=== PATIENT | female | born 2000 | race Caucasian/White ===

== ENCOUNTER 2023-05-23 11:44 | Outpatient (REF) | payer MEDICAID, SELFPAY ==
[2023-05-23 14:10] LABS: Alanine Aminotransferase 12 U/L (0-31); Albumin Level 4.3 g/dL (3.5-5.0); Alkaline Phosphatase 67 U/L (39-117); Amylase 48 U/L (28-100); Anion Gap 11 (12-20); Aspartate Amino Transferase 12 U/L (5-31); Bilirubin Total 0.7 mg/dL (0.0-1.0); Blood Urea Nitrogen 8 mg/dL (9-16); Calcium 9.4 mg/dL (8.4-10.2); Carbon Dioxide 26 mmol/L (22-29); Chloride 107 mmol/L (96-108); Estimated Glomerular Filt Rate > 60; Glucose Random 79 mg/dL (60-115); Lipase 12 U/L (8-78); Potassium 3.9 mmol/L (3.3-5.1); Sodium 140 mmol/L (135-145); Total Protein 7.2 g/dL (6.5-8.0)
[2023-05-26 04:00] LABS: HBS Num1 0.46 mIU/mL (0-7.99); HBc Num1 0.12 S/CO (0.00-0.79); HBsAGNum1 0.41 S/CO (0.00-0.99); HIV AB/AG Nonreactive (Nonreactive); HIV Num 1 0.06 S/CO (0.00-0.99); Hepatitis B Core Antibody Nonreactive (Nonreactive); Hepatitis B Surface Antigen Negative (Negative); ~HepC Num1 0.09 S/CO (0.00-0.79); ~Hepatitis B Surface Antibody NONREACTIVE (Nonreactive); ~Hepatitis C Antibody Nonreactive (Nonreactive)
[2023-05-26 09:48] LABS: RPR Rapid Plasma Reagin NON-REACTIVE (NON-REACTIVE)
== END 2023-05-23 11:45 | disposition home or self-care (01) ==
LOC: HO.HHCL 11:44
PROVIDERS: Visit Provider Emergency Medicine
DX: R10.11 Right upper quadrant pain (principal)
CPT/HCPCS: 36415; 80053; 82150; 83690; 86592; 86704; 86706; 86803; 87340; 87389

== ENCOUNTER 2023-08-07 08:36 | Outpatient (AMB) | payer MEDICAID, SELFPAY ==
--- NOTE | 2023-08-07 08:38 | A.OFFVIS_ITS ---
Intake Vital Signs 08/07/23 08:47 Height 5 ft 4 in Weight 190 lb BMI 32.6 BP 119/66 Blood Pressure Location Rt brachial Position Sitting Pulse 69 Intake Visit Reasons: Gallstones - [facility] U/S Intake Note: This patient presents for an assessment for gallstones. Patient c/o; reports epigastric pain, reports shortness of breath when gets gb attacks, reports postprandial nausea, reports diarrhea. [employer] Required: No Accompanied by: Self / Same As Patient Allergies amoxicillin Allergy (Verified 08/07/23 08:45) Anaphylaxis, Hives Penicillins Allergy (Verified 08/07/23 08:45) Anaphylaxis, Hives Medication List - Last Reconciled 08/07/23 by aRkesh Freeman MD albuterol sulfate 90 mcg/actuation (Ventolin HFA) 2 puffs inhalation Q6H PRN fluticasone propionate 44 mcg/actuation (Flovent HFA) 2 puffs inhalation BID HPI Gallstones - [facility]/S HPI Details 23[facility] had an episode of severe heartburn and epigastric pain last October,. She went to the ER [facility] and she had an ultrasound done showing a small layering gallstone. She was at the time so she says that she was told to wait until after her before proceeding with surgery She delivered her twins last March,. A CT scan done in [facility] in April 2023 did not show these gallstones. However, she continues to have set of epigastric and right upper quadrant pain. She therefore wants to proceed with cholecystectomy. She is overall healthy and the only medical issue she has is that she had an ablation for an arrhythmia when she was 9 years old. [facility] Medical History (Updated 08/07/23 @ 08:44 by Rakesh Freeman MD) Gallstone Social History (Updated 08/07/23 @ 08:46 by HUNTER Russell) Alcohol intake: never Patient Tobacco Use Status: Never used Tobacco Review of Systems Const Denies chills and Denies fever(s) Card Denies chest pain, Denies dyspnea and Denies dyspnea on exertion Resp Denies cough, Denies dyspnea and Denies dyspnea on exertion GI Denies hematochezia and Denies change in bowel habits Denies hematuria Musc Denies back pain and Denies limited range of motion Neuro Denies focal weakness and Denies convulsions Psych Denies depression and Denies mood swings Physical Exam Vital Signs: Last Vital Signs Pulse 69 08/07/23 08:47 BP 119/66 08/07/23 08:47 BMI result Body Mass Index 32.6 Const General: comfortable and no acute distress Orientation/consciousness: patient oriented x3 Neck Neck: Yes no lymphadenopathy Resp Auscultation: clear to auscultation bilaterally Cardio Rhythm: regular rhythm GI Palpation (GI): Soft to palpation, nontender and no guarding Neuro General: patient oriented x3 Assessment & Plan Assessment & Plan (1) Gallstone: Code(s): K80.20 - Calculus of gallbladder without cholecystitis without obstruction Plan: I plan on retrieving her CAT scan images from [facility] so we can review this. Since her ultrasound was done almost a year ago, I will repeat this as well. In the meantime, we will also schedule her for laparoscopic cholecystectomy in view of her symptoms. I explained the technique of laparoscopic cholecystectomy as well as open cholecystectomy. I reviewed the risks including but not limited to bleeding, infections, bowel injury, injury to other organs including the liver and the bile duct, bile leak, retained stones, as well as benefits and alternatives. She understands and wants to proceed. Orders: Orders US abdomen limited 08/07/23 K80.20 - Calculus of gallbladder without cholecystitis without obstruction Coding Level of Care Code New Pt Level 3 (75278) Diagnoses Gallstone K80.20
[2023-08-07 08:47] VITALS: BP 119/66; PULSE 69; BMI 32.6
== END 2023-08-07 09:17 | disposition home or self-care (01) ==
PROVIDERS: PCP Nurse Practitioner; Referring Provider Nurse Practitioner; Visit Provider Surgery
DX: K80.20 Calculus of gallbladder without cholecystitis without obstruction (principal)
CPT/HCPCS: 99203

== ENCOUNTER → 2023-08-07 08:36 | Outpatient (BNVA) | payer MEDICAID, SELFPAY | PROVIDERS: PCP Nurse Practitioner; Referring Provider Nurse Practitioner; Visit Provider Surgery | DX: K80.20 Calculus of gallbladder without cholecystitis without obstruction (principal) | CPT/HCPCS: 99202 ==

== ENCOUNTER 2023-08-25 13:13 | Outpatient (REF) | payer MEDICAID, SELFPAY ==
--- NOTE | ~2023-08-25 | US_ITS ---
EXAMINATION: US ABDOMEN LIMITED CLINICAL INFORMATION: Gallstone. COMPARISON: Ultrasound abdomen 09/17/2017, CT abdomen pelvis 04/07/2023 TECHNIQUE: Real-time imaging of the right upper quadrant abdominal viscera. FINDINGS: PANCREAS: Normal. LIVER: The liver appears enlarged similar to prior CT scan and demonstrates mildly increased echogenicity suggesting steatosis. The liver contour is normal. No focal hepatic lesion. There is no intrahepatic biliary duct dilatation seen. GALLBLADDER: The gallbladder is physiologically distended. A few mobile gallstones are present. No evidence of gallbladder wall thickening or pericholecystic fluid. COMMON BILE DUCT: Normal in caliber measuring 0.4 cm in diameter. RIGHT KIDNEY: Normal. No hydronephrosis. No renal calculi or focal parenchymal lesions. The kidney measures 10.7 cm in maximum dimension. FREE FLUID: None. US/US abdomen limited IMPRESSION: 1. Cholelithiasis without evidence of cholecystitis. 2. Enlarged fatty liver.
== END 2023-08-25 13:14 | disposition home or self-care (01) ==
LOC: HO.HMGCX 13:13
PROVIDERS: Visit Provider Surgery
DX: K80.20 Calculus of gallbladder without cholecystitis without obstruction (principal)
CPT/HCPCS: 76705

== ENCOUNTER 2023-09-03 05:58 | Day surgery (SDC) | payer MEDICAID, SELFPAY ==
--- NOTE | 2023-09-02 10:18 | HO.ANESPROP2 ---
Documented by User: Guadalupe Arriaga NP 09/02/23 10:18 HPI - Anesthesia Eval Consult details Narrative: 23yo F for Cholecystectomy Laparoscopic,possible open PMFSH Active Problems Active Problems: All Active Problems (Updated 08/07/23 @ 08:44 by Rakesh Freeman MD) Gallstone (Acute) Past Medical History Medical History Gallstone Social History Social History Alcohol intake: never Patient Tobacco Use Status: Never used Tobacco Second Hand Smoke Exposure: No Use of substances other than those prescribed or required for medical reasons: No Are you DNR?: No Advance Directives: No Advance Directives Information Provided: Yes Advance Directives on File: No Meds Allergies Allergy/AdvReac Type Severity Reaction Status Date / Time amoxicillin Allergy Anaphylaxis, Verified 08/07/23 08:45 Hives Penicillins Allergy Anaphylaxis, Verified 08/07/23 08:45 Hives Home Medications Medication Instructions Recorded Confirmed Last Taken Type albuterol sulfate 90 mcg/actuation 2 puff inhalation Q6H PRN wheezing 08/07/23 08/07/23 Unknown History aerosol inhaler (Ventolin HFA) fluticasone propionate 44 2 puff inhalation BID 08/07/23 08/07/23 Unknown History mcg/actuation HFA aerosol inhaler (Flovent HFA) Exam Pertinent Lab Results Pertinent Lab Results: Laboratory Tests 05/23/23 11:50 Sodium 140 Potassium 3.9 Chloride 107 Carbon Dioxide 26 BUN 8 L Creatinine 0.73 Total Bilirubin 0.7 AST 12 ALT 12 Alkaline Phosphatase 67 Total Protein 7.2 Albumin 4.3 Assessment and Plan Assessment Anesthesia Assessment: Chart Reviewed Documented by User: Vivien Luna MD 09/03/23 07:29 PMFSH Past Medical History Medical History Gallstone Surgical History History of Problems with Anesthesia: No Social History Social History Alcohol intake: never Patient Tobacco Use Status: Never used Tobacco Second Hand Smoke Exposure: No Use of substances other than those prescribed or required for medical reasons: No Are you DNR?: No Advance Directives: No Advance Directives Information Provided: Yes Advance Directives on File: No Meds Allergies Allergy/AdvReac Type Severity Reaction Status Date / Time amoxicillin Allergy Anaphylaxis, Verified 08/07/23 08:45 Hives Penicillins Allergy Anaphylaxis, Verified 08/07/23 08:45 Hives Home Medications Medication Instructions Recorded Confirmed Last Taken Type albuterol sulfate 90 mcg/actuation 2 puff inhalation Q6H PRN wheezing 08/07/23 08/07/23 Unknown History aerosol inhaler (Ventolin HFA) fluticasone propionate 44 2 puff inhalation BID 08/07/23 08/07/23 Unknown History mcg/actuation HFA aerosol inhaler (Flovent HFA) Exam Airway Mallampati Class: II TM Dist: >3cm Neck ROM: Full Loose/Missing/Broken Teeth: No Heart: RRR Lungs: CTA Assessment and Plan Assessment Anesthesia Assessment: Anesthesia Plan Discussed Final Anesthetic Review History of Problems with Anesthesia: No NPO: Yes ASA Class: II Final Preanesthetic Review: Meds/Allgs Chart Reviewed, Consent Obtained/Reviewed and Anes Risks/Benef Reviewed Patient Risk: Low Procedure Risk: Intermediate Anesthetic Plan Anesthetic Plan: GA Disposition: Standard PACU
[2023-09-03] VITALS (8 sets, daily range): BP systolic 108–122; BP diastolic 72–82; PULSE 61–85; RESP 16–17; TEMP 36.4–36.9; O2SAT 94–100; BMI 34.7
[2023-09-03 06:45] LABS: Urine Pregnancy NEGATIVE (NEGATIVE)
[2023-09-03 06:46] LABS: UPreg QC Valid YES
[2023-09-03] MEDS: Lactated Ringers 1,000 ML 100 ML IVCONT (06:59)
--- NOTE | 2023-09-03 07:32 | MHC.SHP ---
Pre-Procedural Eval Section A - 24 Hr Update-Section A only Date of Service: 09/03/23 The patient is an INPATIENT: No Changes since office visit: No Cold of Flu in the past 2 weeks, No New Medical Problems, No Changes in Medication and No Patient answered all questions The patient has been examined within 24 hours of the surgical procedure. The History & Physical has been completed within 30 days and I have reviewed it.: Yes Section B - Complete if H&P > 30 days Chief Complaint: Calculus of gallbladder without cholecystitis with Allergies: Allergies Allergy/AdvReac Type Severity Reaction Status Date / Time amoxicillin Allergy Anaphylaxis, Verified 08/07/23 08:45 Hives Penicillins Allergy Anaphylaxis, Verified 08/07/23 08:45 Hives Plan I have reviewed the history and physical and performed a pertinent physical examination on my patient. No changes have occurred unless specified. Time Spent With Patient Time: Total time managing care of this patient today ____ minutes.
--- NOTE | 2023-09-03 08:53 | P.OP_ITS ---
Operative Note Operative Note Date of Service: 09/03/23 Narrative: Preop diagnosis: symptomatic gallstones Postop diagnosis: the same Procedure: Laparoscopic cholecystectomy Surgeon: Rakesh Freeman MD The patient is a 23 year female referred to me for symptomatic gallstones. This was seen on a recent ultrasound as well. She understood the technique of the planned procedure. She was aware of the risks, benefits, and alternatives. She was brought to the operating room. She was placed supine under general anesthesia via endotracheal tube. The abdomen was prepped and draped in the usual sterile fashion. A surgical time-out was done. The patient received Cefotan 2 g IV preoperatively I made a short incision on the supraumbilical margin using a blade 15. This carried down through the full-thickness of the skin subcutaneous fat down to the fascia. The fascia was incised. The peritoneum was entered. Through this incision and Araya port was introduced. Pneumoperitoneum was introduced to a pressure of 15 mm Hg and from here on the rest of procedure was done under vision with the 10 mm 0 degree laparoscope. With laparoscopic visualization I proceeded to insert a 5/12 mm port in the epigastric area below the subcostal margin. Two 5 mm ports were introduced via small incisions below the subcostal margin along the anterior axillary line and the midclavicular line. Graspers were placed through these working ports. The patient was placed in head-up and [id number] position. The gallbladder fundus was seen. There was note of a lot of adhesions on the anterior wall. There was note of a small bowel loop that was adherent to the anterior wall as well. We were able to apply a grasper on the fundus and this was retracted cephalad. I then proceeded to carefully dissect the adhesions off of the anterior wall of the gallbladder using the [place] dissector. Were able to therefore completely separate this small bowel loop off of the gallbladder. I was able to apply a grasper at the pouch of the gallbladder to retract this laterally. The gallbladder was therefore being retracted in a cephalad and lateral fashion to put the area of the cystic duct on stretch. The gallbladder was supple and did not appear acutely inflamed. We continued to do this dissection of the neck of the gallbladderuntil I was able to define the cystic duct well and clearly see its confluence with the neck of the gallbladder. By doing so, we were able to also achieve a critical view of the hepatocystic triangle. We could see what appeared to be the cystic artery and there were no other tubular structures . I continued to dissect the cystic duct and then applied clips on this with two clips applied distally. The cystic duct was transected between clips with Endo scissors. I applied clips on the cystic artery as well with 2 clips applied d istally and this was transected between clips with Endo scissors. I used the [place] dissector to continue to gently dissect the rest of the fibro areolar tissue in the hilum . I incised the peritoneum of the gallbladder using the electrocautery spatula. I then defined a plane of dissection between the gallbladder wall and the liver bed along this incision. I the gallbladder from the liver bed along this plane all the way to the fundus until the entire gallbladder was completely from the liver bed . I retrieved the gallbladder through the umbilical incision using an endobag . I reinserted all ports and reinsufflated. I examined all 4 quadrants. There was no other pathology seen. I lifted the liver edge and examined the subhepatic space. There was no evidence of any bleeding or any bile leak . Once hemostasis appeared confirmed, proceeded to then irrigate and suction out irrigant fluid I then desufflated Through the port sites. I removed all ports under vision with the laparoscope. I removed the umbilical port last. I closed the fascia of the umbilical incision with a [id number] Polysorb 0 stitch. Skin closure was achieved on all incisions using Polysorb 4-0 subcuticular running sutures All incisions were infiltrated with Marcaine 0.5% for postop analgesia. Steri-Strips and dressings were applied. The procedure was completed. The patient tolerated procedure well. There were no immediate complications. Initial and final counts of sponges and instruments were correct. Estimated blood loss was about 25 cc. The patient was extubated without difficulty and transferred to the recovery room with stable vital signs
[2023-09-03] MEDS: oxyCODONE HCl Immed Release 5 MG TABLET PO (09:23)
[2023-09-03] MEDS: ondansetron HCL 4 MG/2 ML VIAL IVPUSH (10:00)
== END 2023-09-03 11:00 | disposition home or self-care (01) ==
PROVIDERS: Nurse Practitioner; Visit Provider Surgery
PROC: 0FT44ZZ Resection of Gallbladder, Percutaneous Endoscopic Approach (ICD-10-PCS; CPT 47562; principal; 2023-09-03 07:30)
DX: K80.10 Calculus of gallbladder with chronic cholecystitis without obstruction (principal); K82.8 Other specified diseases of gallbladder; Z79.51 Long term (current) use of inhaled steroids; Z88.0 Allergy status to penicillin; Z88.1 Allergy status to other antibiotic agents
CPT/HCPCS: 47562; 81025; 88304; J0131; J1100; J1170; J1580; J1836; J2250; J2405; J2704; J2795; J3010

== ENCOUNTER → 2023-09-03 05:58 | Outpatient (BNV) | payer MEDICAID, SELFPAY | PROVIDERS: Visit Provider Surgery | DX: K80.20 Calculus of gallbladder without cholecystitis without obstruction (principal) | CPT/HCPCS: 47562 ==

== ENCOUNTER 2025-06-14 08:43 | Emergency (ER) | payer OTHER, SELFPAY ==
--- NOTE | ~2025-06-14 | CT_ITS ---
EXAMINATION: CT ABDOMEN AND PELVIS WITH CONTRAST CLINICAL INFORMATION: Left upper quadrant pain/epigastric pain. COMPARISON: Correlated to ultrasound limited dated August 25, 2023. TECHNIQUE: Multidetector volumetric images were obtained from the superior aspect of the liver through the pubic symphysis following administration 85 mL of Omnipaque 350 intravenous contrast. Sagittal and coronal reformatted images were obtained on the technologist's workstation. Oral contrast: No This CT examination was performed using dose optimization techniques as appropriate, variously including the following: *Automated exposure control *Adjustment of mA and/or kV according to patient size (this includes techniques or standardized protocols for targeted exams where dose is matched to indication/reason for exam; i.e. extremities or head) *Use of iterative reconstruction technique DLP: 513 mGy-cm FINDINGS: Inadequate IV contrast enhancement of the intra-abdominal organs. Exam acquired on a delayed phase. LUNG BASES: Subtle pulmonary patchy groundglass. LIVER, GALLBLADDER, AND BILIARY TREE: Liver measures 17 cm. Status post cholecystectomy. No intrahepatic or extrahepatic biliary ductal dilatation. PANCREAS: No main pancreatic ductal dilatation. No peripancreatic fluid collection. SPLEEN: 11 cm. ADRENAL GLANDS: No nodular lesion. KIDNEYS AND URETERS: No hydronephrosis. No gross nephrolithiasis. Subcentimeter cyst, left kidney. Normal urinary excretion into the collecting system. BLADDER: Contrast-filled Collapsed. GASTROINTESTINAL TRACT: Fluid-filled distal ileal loops with a collapsed appearance of the jejunal loops. Intestinal wall thickening, terminal ileum and distal ileal loops. Fluid-filled right hemicolon. No intestinal obstruction pattern. No pneumatosis intestinalis. Collapsed appearance of the sigmoid colon. No ascites. No pneumoperitoneum. No peritoneal fluid collections. Appendix is normal. ABDOMINAL WALL: Diastases abdominal rectus muscles in the umbilical region. LYMPH NODES: Prominent mesenteric and to a lesser extent retroperitoneal lymph nodes. VASCULAR: No aneurysm or gross dissection, abdominal aorta. PELVIC VISCERA: Inadequate evaluation demonstrated no gross masses. OSSEOUS STRUCTURES: Spondylosis at L5-S1. No acute fracture or gross listhesis. Mild degenerative changes in the symphysis pubis. CT/CT abdomen pelvis w IV con IMPRESSION: Concerning acute inflammatory bowel disease such as Crohn's disease versus ulcerative colitis. No intestinal obstruction pattern. Hepatomegaly. Subtle pulmonary patchy groundglass. Small airway disease versus small pulmonary artery disease should be considered.. Fleischner guidelines were followed. Electronically signed by: Ramón Mix MD 06/14/2025 11:28 AM EST
[2025-06-14 08:50] VITALS: BP 109/61; PULSE 91; RESP 20; TEMP 36.6; O2SAT 100; BMI 32.0
--- NOTE | 2025-06-14 09:00 | ED.ABDPAIN ---
HPI - Abdominal Pain General Chief Complaint: Abdominal Pain Stated Complaint: Stomach Pain Time Seen by Provider: 06/14/25 08:59 Source: patient and RN notes reviewed Mode of arrival: ambulatory Limitations: no limitations History of Present Illness ED Provider: Sola Flores PA-C HPI narrative: This is a 25-year-old female who presents emergency department with complaints of mid upper abdominal pain which started yesterday. Patient reports that the pain started yesterday, she endorses chills, nausea, vomiting, and diarrhea. She states that she has had multiple episodes of watery diarrhea which started this morning. Patient does report that she had some lower abdominal pain several days ago however reports that this has resolved. She states that she now is having significant pain in her epigastrium and left upper quadrant. Denies any sick contacts with similar symptoms. She reports that the pain is primarily in the epigastrium and left upper quadrant. Denies chance of . No abnormal vaginal discharge or bleeding. She does report that she uses marijuana, denies any other drug use. She does not regularly drink alcohol. No other complaints or concerns at this time. MD elicited complaint: abdominal pain Related Data Home Medications ?Medication ?Instructions ?Recorded ?Confirmed albuterol sulfate 90 mcg/actuation 2 puff inhalation Q6H PRN wheezing 08/07/23 08/07/23 aerosol inhaler (Ventolin HFA) fluticasone propionate 44 2 puff inhalation BID 08/07/23 08/07/23 mcg/actuation HFA aerosol inhaler (Flovent HFA) Previous Rx's ?Medication ?Instructions ?Recorded ibuprofen 600 mg tablet 600 mg PO Q6H PRN pain #30 tabs 09/03/23 oxycodone-acetaminophen 5 mg-325 1 tab PO Q4-6H PRN pain #25 tabs 09/03/23 mg tablet (Percocet) acetaminophen 500 mg tablet 500 mg PO Q6H PRN pain #30 tabs 06/14/25 (Tylenol Extra Strength) ondansetron 4 mg disintegrating 4 mg PO Q6H PRN nausea and 06/14/25 tablet vomiting #10 tabs Allergies Allergy/AdvReac Type Severity Reaction Status Date / Time amoxicillin Allergy Anaphylaxis, Verified 06/14/25 08:52 Hives Penicillins Allergy Anaphylaxis, Verified 06/14/25 08:52 Hives Review of Systems Review of Systems Yes all other systems are reviewed and are negative Constitutional: Reports as per [facility] Past Medical History Medical History (Updated 06/14/25 @ 17:11 by YAMIL Bradshaw) Gallstone Surgical History (Updated 09/16/23 @ 10:17 by HUNTER Russell) History of laparoscopic cholecystectomy (~09/03/23) Social History Social History Alcohol intake: never Patient Tobacco Use Status: Never used Tobacco Second Hand Smoke Exposure: No Advance Directives: No Advance Directives Information Provided: No Do you have a plan to hurt others: No Plan Physical Exam ED Vital Signs: Vital Signs - 24 hr 06/14/25 08:50 06/14/25 12:27 06/14/25 13:26 Temperature 97.9 F Pulse Rate 91 89 Respiratory Rate 20 16 25 H Blood Pressure 109/61 139/85 Pulse Oximetry 100 99 Oxygen Delivery Method Room Air Room Air BMI result Body Mass Index 32.0 Const General: cooperative, comfortable and no acute distress Orientation/consciousness: patient oriented x3 Limitations: no limitations HENMT Head: Yes normal to inspection, Yes normocephalic and Yes atraumatic Ears: hearing grossly normal bilaterally General nose exam: Normal external nose present Face and sinus: Yes normal facial exam Mouth: Normal oral and palatal mucosa present, oropharynx normal and moist mucous membranes Throat: Yes posterior oropharynx normal Eyes General: appearance normal, both eyes and all related structures Eyelids: Yes eyelids normal Conjunctivae: conjunctivae normal Sclerae: sclerae normal Pupils: Equal, round and reactive pupils present EOM: EOMs intact bilaterally Neck Neck: Yes normal visual inspection, Yes full ROM and Yes no lymphadenopathy Lymphatic: no lymphadenopathy noted Chest Chest palpation & inspection: normal inspection of the chest Resp Effort & Inspection: normal respiratory effort and able to speak in complete sentences Auscultation: clear to auscultation bilaterally, no crackles, no rales, no rhonchi and no wheezes Cardio Rate: regular rate Rhythm: regular rhythm Heart sounds: S1 normal heart sound present and S2 normal heart sound present GI Other: Abdomen is soft with tenderness palpation in the epigastrium and left upper quadrant. No rebound or guarding. Inspection: Yes normal to inspection Skin General skin exam: no rashes or lesions noted Trauma: no lacerations or abrasions Wounds: no wounds Neuro General: patient oriented x3 and moves all extremities Cranial nerves: Yes Equal, round and reactive pupils present Extrem General: Yes normal to inspection Right upper extremity: normal to inspection Left upper extremity: normal to inspection Right lower extremity: normal to inspection Left lower extremity: normal to inspection Medical Decision Making Medical Decision Making [facility] Narrative: This is a 25-year-old female who presents emergency department for evaluation of abdominal pain, nausea, vomiting, diarrhea which started yesterday. On arrival, patient nontoxic appearing, speaking in full sentences. Vital signs within normal limits. Abdomen is soft with tenderness palpation in the epigastrium and left upper quadrant. She has a history of a cholecystectomy several years ago. No urinary symptoms. Differential diagnoses include gastritis, gastroenteritis, colitis. Less likely acute abdomen. Plan: Labs, UA, CT abdomen and pelvis, will medicate with IV fluids, Pepcid, Toradol, and Zofran. We will continue to closely monitor. 2:01 PM 06/14/2025 (Sola Flores PA-C): CT abdomen and pelvis revealing inflammatory bowel disease. Also revealing hepatommegaly, as well as airway disease. She has no chest pain or shortness of breath at this time. No pleuritic chest pain, discussed with my attending physician, Dr. Carvajal, no additional workup indicated for this. Patient re-evaluated, still experiencing significant pain. Will treat with IV Tylenol, and 2nd dose of Zofran. Reached out to Dr. Reinoso GI specialist. Recommending avoiding Toradol, obtaining stool samples. If patient is unable to tolerate p.o. secondary to pain, patient may need to be admitted. We will follow-up outpatient. 4:53 PM 06/14/2025 (Sola Flores PA-C): Patient re-evaluated after being medicated, she is feeling better, will p.o. challenge. 6:00 PM 06/14/2025 (Sola Flores PA-C): Patient able to tolerate p.o.. Discharged on Zofran and Tylenol. She will follow-up with GI specialist outpatient. Stool samples were collected. Patient understands agrees with plan. Given strict return precautions, patient stable for discharge. Differential Diagnosis Differential Diagnoses: The differential diagnosis associated with the presentation includes See above Lab Data [facility] Lab Attestation statement: I reviewed the patient's lab results. No leukocytosis, stable H&H, chemistry revealing no significant electrolyte derangement. Urine does not appear to be infected. 06/14/25 09:00 06/14/25 09:00 Labs: Lab Results 06/14/25 06/14/25 Range/Units 09:00 10:57 WBC 8.2 (4.8-10.8) X10*3/uL RBC 5.07 (4.20-5.50) X10*6/uL Hgb 13.1 (12.0-16.0) g/dl Hct 40.8 (37.0-47.0) % MCV 80.5 (80.0-98.0) fL MCH 25.8 L (27.0-33.0) pg MCHC 32.1 (31.0-35.0) g/dl RDW 14.5 (11.0-16.0) % Plt Count 356 (160-400) X10*3/uL MPV 10.7 (9.4-12.3) fL Immature Gran % (Auto) 0.4 (0.0-0.4) % Neut % (Auto) 83.1 H (45-73) % Lymph % (Auto) 10.9 L (20-40) % [place] % (Auto) 5.2 (2-11) % Eos % (Auto) 0.2 (0-4) % Baso % (Auto) 0.2 (0-2) % Lymph # (Auto) 0.9 L (1.2-4.9) X10*3/uL [place] # (Auto) 0.4 (0.1-1.2) X10*3/uL Eos # (Auto) 0.0 (0.0-0.4) X10*3/uL Baso # (Auto) 0.0 (0.0-0.2) X10*3/uL Abs Immat Gran (auto) 0.03 (0.00-0.03) X10*3/uL Absolute Neuts (auto) 6.8 (2.0-8.3) x10*3/uL Absolute Nucleated RBC 0.000 (0.0-0.012) X10*3/uL Nucleated RBC % (auto) 0.0 (0.0-0.2) /100WBC Sodium 139 (135-145) mmol/L Potassium 3.8 (3.3-5.1) mmol/L Chloride 109 H (96-108) mmol/L Carbon Dioxide 23 (22-29) mmol/L Anion Gap 11 L (12-20) BUN 9 (9-16) mg/dL Creatinine 0.68 (0.5-1.4) mg/dL Estim Creat Clear Calc 131.8 Estimated GFR > 60 Random Glucose 87 (60-115) mg/dL Calcium 8.8 D (8.4-10.2) mg/dL Total Bilirubin 0.7 (0.0-1.0) mg/dL Direct Bilirubin 0.2 (0.0-0.5) mg/dL AST 22 (5-31) U/L ALT 15 (0-31) U/L Alkaline Phosphatase 73 (39-117) U/L Total Protein 7.3 (6.5-8.0) g/dL Albumin 4.5 (3.5-5.0) g/dL Lipase 16 (8-78) U/L Beta HCG, Quant < 2 mIU/mL Urine Color Yellow Urine Appearance Clear Urine pH 6.0 (5.0-9.0) Ur Specific [place] >= 1.030 H (1.005-1.025) Urine Protein 30 (1+) H (Neg-Trace) mg/dL Urine Glucose (UA) Negative (Negative) mg/dL Urine Ketones 40 (Negative) mg/dL Urine Blood Negative (Negative) Urine Nitrite Negative (Negative) Ur Leukocyte Esterase Trace H (Negative) Urine RBC 0-2 (0-2) /HPF Urine WBC 0-5 (0-5) /HPF Ur Squamous Epith Cells 11-20 (0-2) /HPF Urine Bacteria 1+ (None Seen) Hyaline Casts 0-2 (0-2) /LPF Urine Test NEGATIVE (NEGATIVE) Radiology Impression Discussion of test interpretation with radiology: I have reviewed the radiologist's reading. Radiologist Impression: FINDINGS: Inadequate IV contrast enhancement of the intra-abdominal organs. Exam acquired on a delayed phase. LUNG BASES: Subtle pulmonary patchy groundglass. LIVER, GALLBLADDER, AND BILIARY TREE: Liver measures 17 cm. Status post cholecystectomy. No intrahepatic or extrahepatic biliary ductal dilatation. PANCREAS: No main pancreatic ductal dilatation. No peripancreatic fluid collection. SPLEEN: 11 cm. ADRENAL GLANDS: No nodular lesion. KIDNEYS AND URETERS: No hydronephrosis. No gross nephrolithiasis. Subcentimeter cyst, left kidney. Normal urinary excretion into the collecting system. BLADDER: Contrast-filled Collapsed. GASTROINTESTINAL TRACT: Fluid-filled distal ileal loops with a collapsed appearance of the jejunal loops. Intestinal wall thickening, terminal ileum and distal ileal loops. Fluid-filled right hemicolon. No intestinal obstruction pattern. No pneumatosis intestinalis. Collapsed appearance of the sigmoid colon. No ascites. No pneumoperitoneum. No peritoneal fluid collections. Appendix is normal. ABDOMINAL WALL: Diastases abdominal rectus muscles in the umbilical region. LYMPH NODES: Prominent mesenteric and to a lesser extent retroperitoneal lymph nodes. VASCULAR: No aneurysm or gross dissection, abdominal aorta. PELVIC VISCERA: Inadequate evaluation demonstrated no gross masses. OSSEOUS STRUCTURES: Spondylosis at L5-S1. No acute fracture or gross listhesis. Mild degenerative changes in the symphysis pubis. CT/CT abdomen pelvis w IV con IMPRESSION: Concerning acute inflammatory bowel disease such as Crohn's disease versus ulcerative colitis. No intestinal obstruction pattern. Hepatomegaly. Subtle pulmonary patchy groundglass. Small airway disease versus small pulmonary artery disease should be considered.. Fleischner guidelines were followed. Electronically signed by: Ramón Mix MD 06/14/2025 11:28 AM [facility] Dictated By: Ramón Haynes MD Medications Administered Discontinued Medications Generic Name Dose Route Start Last Admin Trade Name Freq PRN Reason Stop Dose Admin Famotidine 20 mg 06/14/25 09:45 06/14/25 10:51 Famotidine/Pf 20 Mg/2 Ml Vial IVPUSH 06/14/25 09:46 20 mg ONCE ONE Administration Sodium Chloride 1,000 mls @ 999 mls/hr 06/14/25 09:40 06/14/25 12:26 Ns IV 06/14/25 10:40 Infused .Q1H1M ONE Infusion Acetaminophen 1,000 mg in 100 mls @ 400 mls/hr 06/14/25 14:07 06/14/25 14:43 Ofirmev IV 06/14/25 14:21 400 mls/hr ONCE ONE Administration Sodium Chloride 1,000 mls @ 999 mls/hr 06/14/25 14:15 06/14/25 14:44 Ns IV 06/14/25 15:15 999 mls/hr .Q1H1M ONE Administration Iohexol 100 ml 06/14/25 11:11 06/14/25 11:11 Iohexol 350 Mg/Ml 100 Ml Infus..Btl IV 06/14/25 11:12 85 ml ONCE ONE Administration Ketorolac Tromethamine 15 mg 06/14/25 09:40 06/14/25 10:51 Ketorolac Tromethamine 15 Mg/Ml Vial IVPUSH 06/14/25 09:41 15 mg ONCE ONE Administration Morphine Sulfate 4 mg 06/14/25 12:52 06/14/25 13:26 Morphine Sulfate 4 Mg/Ml Cartridge IVPUSH 06/14/25 12:53 4 mg ONCE ONE Administration Protocol Ondansetron HCl 4 mg 06/14/25 09:40 06/14/25 10:52 Ondansetron Hcl 4 Mg/2 Ml Vial IVPUSH 06/14/25 09:41 4 mg ONCE ONE Administration Ondansetron HCl 4 mg 06/14/25 14:07 06/14/25 14:43 Ondansetron Hcl 4 Mg/2 Ml Vial IVPUSH 06/14/25 14:08 4 mg ONCE ONE Administration Discharge Plan Discharge Clinical Impression: Gastroenteritis Patient Disposition: Home, Self-Care Instructions: Gastroenteritis (ED), Acute Nausea and Vomiting (ED), Enteritis (ED) Additional Instructions: You were seen in the emergency department due to abdominal pain. Your CT scan was concerning for acute inflammatory bowel disease such as Crohn's disease versus ulcerative colitis. This was discussed with the GI specialist, this may be attributed to a virus, however you can follow-up with their office, call to make an appointment. Stick to a bland diet over the next several days. Drink plenty of fluids get plenty of rest. May take Zofran as needed for nausea. You may take Tylenol as needed for pain. Avoid any NSAIDs. If any new or worsening symptoms occur including but not limited to severe chest pain, shortness of breath, please seek emergent care. Prescriptions: New ondansetron 4 mg tablet,disintegrating 4 mg PO Q6H PRN (Reason: nausea and vomiting) Qty: 10 0RF acetaminophen [Tylenol Extra Strength] 500 mg tablet 500 mg PO Q6H PRN (Reason: pain) Qty: 30 0RF No Action oxycodone-acetaminophen [Percocet] 5-325 mg tablet 1 tab PO Q4-6H PRN (Reason: pain) Qty: 25 0RF Rx Instructions: Partial Fill upon patient request. ibuprofen 600 mg tablet 600 mg PO Q6H PRN (Reason: pain) Qty: 30 0RF albuterol sulfate [Ventolin HFA] 90 mcg/actuation HFA aerosol inhaler 2 puff inhalation Q6H PRN (Reason: wheezing) fluticasone propionate [Flovent HFA] 44 mcg/actuation HFA aerosol inhaler 2 puff inhalation BID Referrals: [facility] [Provider Group, Gastroenterology] Stand Alone Forms: Work/School Release Print Language: [place]se
[2025-06-14 09:03] LABS: MANUAL DIFF FLAG NO
[2025-06-14 09:05] LABS: Hematocrit 40.8 % (37.0-47.0); Hemoglobin 13.1 g/dl (12.0-16.0); Imm Gran Abs Auto 0.03 X10*3/uL (0.00-0.03); Imm Gran Pct Auto 0.4 % (0.0-0.4); Lymphocytes Absolute Auto 0.9 X10*3/uL (1.2-4.9); Mean Corpuscular HGB Conc 32.1 g/dl (31.0-35.0); Mean Corpuscular Hemoglobin 25.8 pg (27.0-33.0); Mean Corpuscular Volume 80.5 fL (80.0-98.0); NRBC Abs Auto 0.000 X10*3/uL (0.0-0.012); NRBC Pct Auto 0.0 /100WBC (0.0-0.2); Platelet Count 356 X10*3/uL (160-400); Red Blood Count 5.07 X10*6/uL (4.20-5.50); White Blood Count 8.2 X10*3/uL (4.8-10.8)
[2025-06-14 09:19] LABS: Alanine Aminotransferase 15 U/L (0-31); Albumin Level 4.5 g/dL (3.5-5.0); Alkaline Phosphatase 73 U/L (39-117); Anion Gap 11 (12-20); Aspartate Amino Transferase 22 U/L (5-31); Blood Urea Nitrogen 9 mg/dL (9-16); Calcium 8.8 mg/dL (8.4-10.2); Carbon Dioxide 23 mmol/L (22-29); Chloride 109 mmol/L (96-108); Creatinine Clr Calc Pharmacy 131.8; Estimated Glomerular Filt Rate > 60; Lipase 16 U/L (8-78); Potassium 3.8 mmol/L (3.3-5.1); Sodium 139 mmol/L (135-145); Total Protein 7.3 g/dL (6.5-8.0)
--- OUTSIDE RECORDS SUMMARY | 2025-06-14 09:56 | XMS_ITS | Encounter Summary ---
Author Organization [facility] Address [address] [place] [address] Care Team Providers Care Adult Services Librarian Name Role Phone Justa Smita MAYELA Primary Care Provider [phone] Reason for Visit * Reason Comments Med Refill Encounter Details Date Type Department Care Team (Late st Contact Info) Description 08/31/2023 Refill [facility] [address] [place] [address] Valery Howe FNP Social History Tobacco Use Types Packs/Day Years Used Date Smoking Tobacco: Never Smokeless Tobacco: Never Alcohol Use Standard Drinks/Week Comments Not Currently 0 (1 standard drink = 0.6 oz pur e alcohol) Depression Answer Date Recorded Patient Health Questionnaire-9 Score 3 11/11/2022 Housing Stability Answer Date Recorded What is your housing situation today? I do not have housing (Staying with others, in a hotel, in a jail, living outside on the street, on a beach, in a car, or in a park 05/12/[address] you li ve. Do you have problems with any of the following? None of the above 05/12/2023 Food Insecurity Answer Date Recorded Within the past 12 months, y ou worried that your food would run out before you got money to buy more: Never True 05/19/2023 Within the past 12 months,th e food you bought just didn't last and you didn't have enough money to get more: Never True Transportation Answer Date Recorded In the past 12 months, has l ack of transportation kept you from medical appts, meetings, work or from getting things needed for daily living? Yes, it has kept me from medical appointments or getting medications. 05/12/2023 Utilities Answer Date Recorded In the past 12 months, has t he [employer], gas, oil or water [employer] threatened to shut off services in your home? No 05/19/2023 Depression Answer Date Recorded Patient Health Questionnaire-2 Score 1 11/11/2022 Comments Yes Sex and Gender Information Value Date Recorded Sex Assigned at Female 06/03/2022 10:15 AM EDT Legal Sex Female 10:15 AM EDT Gender Identity Female 06/03/2022 10:15 AM EDT Sexual Orientation Straight 06/03/2022 10 :15 AM EDT documented as of this encounter Miscellaneous Notes * Telephone Encounter - Smita Marr NP - 09/01/2023 9:46 PM EST Approving, but needs appt for additional refills. documented in this encounter Plan of Treatment Not on file documented as of this encounter Visit Diagnoses Not on filedocumented in this encounter Additional Health Concerns Assessment Noted Time PHQ-9 Depression Total Score: 3 11/12/19 23 2:18 PM EDT documented as of this encounter Care Teams Adult Services Librarian Relationship Specialty Start Date End Date Smita Marr NP [address] [place] [address] PCP - General Family Medicine 05/13/23 documented as of this encounter
--- OUTSIDE RECORDS SUMMARY | 2025-06-14 09:56 | XMS_ITS | Clinical Summary ---
Author Organization [employer] Address [address] [place] [address] 7[address] [place] [address] Care Team Providers Care Alum Plant Operator Name Role Phone Jerrysukhjinder Smita PEDRO Primary Care Provider [phone] Allergies Active Allergy Reactions Criticality Noted Date Comments Amoxicillin 11/11/2022 Penicillin G 11/11/2022 Medications ibuprofen 800 MG tablet PLEASE SEE ATTACHED FOR DETAILED DIRECTIONS 3 Active acetaminophen (Tylenol) 325 MG tablet PLEASE SEE ATTACHED FOR DETAILED DIRECTIONS 3 Active albuterol 108 (90 Base) MCG/ACT inhalerIndication s:Mild persistent asthma without complication Inhale 2 puffs every 6 (six) hours if needed for wheezing or shortness of breath. 18 g 3 3 Active fluticasone (Flovent) 44 MCG/ACT inhaler Inhale 2 puffs 2 times daily. 10.6 g 3 3 Active Stool Softener 100 MG tablet TAKE 1 TABLET BY MOUTH TWICE A DAY 180 tablet 3 Active famotidine (Pepcid) 20 MG tablet TAKE 1 TABLET BY MOUTH TWICE A DAY 180 tablet 4 Active norethindrone (Micronor) 0.35 MG tablet PLEASE SEE ATTACHED FOR DETAILED DIRECTIONS 3 Active Active Problems Problem Noted Date Diagnosed Date Cardiomyopathy, peripartum, 4 Right upper quadrant abdominal pain 05/30/2023 Epigastric pain 05/30/2023 Twin , twins dichorionic and diamniotic 03/27/2023 Depression during 03/27/2023 Positive antinuclear antibody 11/11/2022 Recurrent urinary tract infection 11/11/2022 Seasonal allergies 11/11/2022 Class 2 obesity 11/11/2022 Edema 11/11/2022 H/O proteinuria syndrome 11/11/2022 H/O supraventricular tachycardia 11/11/2022 Maternal varicella, non-immune 11/11/2022 Not immune to rubella 11/11/2022 Calculus of kidney 10/27/2019 Microscopic hematuria 10/27/2019 Obstruction of urinary tract 10/27/2019 Mild persistent asthma 09/10/2018 Proteinuria 11/28/2016 Obstructive sleep apnea syndrome 07/05/2016 Encounters Date Type Department Care Team Description 06/14/2025 Orders Only GENERIC EXTERNAL DATA DEPARTMENT Provider, Generic External Data from Last 3 Months Immunizations Immunization Administration Dates Next Due DTaP 01/03/2005, 1,1999,10/08,1999 HPV 9-Valent 06/24/2017,11/28/2016,05/02/2016 Hep A, ped/adol, 2 dose 11/28/2016,05/02/2016 Hep B, Adolescent or Pediatric 05/27/2000,1999,1999 Hib (HbOC) 10/21/2000, 0,1999,08/21 INFLUENZA INJECTABLE QUADRIV ALANT CCIIV4 MDCK Multi-dose vial 04/29/2019 IPV 01/03/2005, 1,1999,08/21 Influenza injectable quadriv alent preservative free 09/15/2023,06/15/2021,08/09/2019,09/17,06/24/2017,05/02/2016,06/07/2015 Influenza, IIV3, injectable 09/02/2022, 0 Influenza, seasonal, injecta ble, preservative free 07/07/2014 MMR 03/09/2023,01/03/2005,05/27/2000 Meningococcal MCV4P [id number]-135 05/02/2016 Pfizer Covid-19 Vaccine 12+ 07/07/2014 Pfizer Covid-19 Vaccine 12+ imelda-sucrose (Arnett Cap) 08/02/2021 Pneumococcal Conjugate PCV 7 10/21/2000,05/28/20 00,02/26/2000 Pneumococcal, Unspecified 10/21/2000,2000, 02/26/2000 Tdap 12/23/2022,06/26/2010 Varicella 05/21/2010,05/27/2000 Family History Medical History Relation Name Comments No Known Problems Brother Diabetes Father Hypertension Father Arthritis Mother Asthma Mother Diabetes Mother Hypertension Mother No Known Problems Sister Relation Name Status Comments Brother Father Mother Sister Social History Tobacco Use Types Packs/Day Years Used Date Smoking Tobacco: Never Smokeless Tobacco: Never Tobacco Cessation:Counseling Given: Not Answered Alcohol Use Standard Drinks/Week Comments Not Currently 0 (1 standard drink = 0.6 oz pur e alcohol) Depression Answer Date Recorded Patient Health Questionnaire-9 Score 3 11/11/2022 Housing Stability Answer Date Recorded What is your housing situation today? I do not have housing (Staying with others, in a hotel, in a penitentiary, living outside on the street, on a beach, in a car, or in a park 06/10/[address] you li ve. Do you have problems with any of the following? None of the above 06/10/2024 Food Insecurity Answer Date Recorded Within the past 12 months, y ou worried that your food would run out before you got money to buy more: Sometimes True 2023 Within the past 12 months,th e food you bought just didn't last and you didn't have enough money to get more: Sometimes True 06/10/2024 Transportation Answer Date Recorded In the past 12 months, has l ack of transportation kept you from medical appts, meetings, work or from getting things needed for daily living? Yes, it has kept me from medical appointments or getting medications. 06/10/2024 Utilities Answer Date Recorded In the past 12 months, has t he [employer], gas, oil or water [employer] threatened to shut off services in your home? No 05/19/2023 Depression Answer Date Recorded Patient Health Questionnaire-2 Score 1 11/11/2022 Internet Access Answer Date Recorded Internet Access Q1 Yes 06/10/2024 Internet Access Q2 Not on file 06/10/2024 Comments No Sex and Gender Information Value Date Recorded Sex Assigned at Female 06/03/2022 10:15 AM EDT Legal Sex Female 10:15 AM EDT Gender Identity Female 06/03/2022 10:15 AM EDT Sexual Orientation Straight 06/03/2022 10 :15 AM EDT Last Filed Vital Signs Vital Sign Reading Time Taken Comments Blood Pressure 112/63 10/07/2023 10:26 AM EST Pulse 88 10/07/2023 10:26 AM EST Temperature 36.4 C (97.5 F) 10/07/2023 10:26 AM EST Respiratory Rate 19 10/07/2023 10:26 AM EST Oxygen Saturation 99% 10/07/2023 10:26 AM EST Inhaled Oxygen Concentration - - Weight 89 kg (196 lb 3.2 oz) 10/07/2023 10:26 AM EST Height 162.6 cm (5' 4 ) 10/07/2023 10:26 AM EST Body Mass Index 33.68 10/07/2023 10:26 AM EST Plan of Treatment Health Maintenance Due Date Last Done Comments Disability Screening 1999 Alcohol/Substance Use Screening 2011 Family Planning (PISQ) 2014 Pneumococcal Vaccine: Pediatrics (0 to 5 Years) and At-Risk Patients (6 to 49) Years (1 of 2 - PCV) 2018 10/21/2000, 10/21/2000, 2000, Additional history exists Depression Screening 11/12/2023 11/11/2022, 11/12/19 23 COVID-19 Vaccine ( season) 2025 01/16/2022, 08/02/2021, 06/25/2021, Additional history exists Influenza Vaccine (#1) 2025 , 09/02/2022, 09/02/2022, Additional history exists SDOH Screening 06/10/2025 06/10/2024 Tobacco Screening 07/23/2025 07/23/2024 HPV/Cotest 08/26/2025 Pap Smear 08/26/2025 08/26/2022 DTaP/Tdap/Td Vaccines (9 - Td or Tdap) 04/15/2034 04/15/2024, 12/23/2022, 06/26/2010, Additional history exists Zoster Vaccines (1 of 2) 2049 RSV Patients and Patients Aged 60 years or older (1 - 1-dose 75+ series) 2074 Hepatitis B Vaccines Completed 05/27/2000, 02/26/2000, 1999 HIB Vaccines Completed 10/21/2000, 03/2000, 1999, Additional history exists IPV Vaccines Completed 01/03/2005, 10/03, 1999, Additional history exists Meningococcal Vaccine Completed 05/02/2016 Hepatitis A Vaccines Completed 11/28/2016, 05/02/20 16 HPV Vaccines Completed 06/24/2017, 11/03, 05/02/2016 HIV Screening Completed 05/23/2023, 03/31/2020 Hepatitis C Screening Completed 05/23/2023, 020 Meningococcal B Vaccine Aged Out No l onger eligible based on patient's age to complete this topic RSV under 20 months Aged Out No longe r eligible based on patient's age to complete this topic Rotavirus Vaccines Aged Out No longer eligible based on patient's age to complete this topic Procedures Procedure Name Priority Date/Time Associated Diagnosis Comments CBC WITH AUTO DIFFERENTIAL Routine 06/14/2025 9:00 AM EST HEPATITIS B, C PROFILE Routine 05/23/2023 11:50 AM EDT HIV ANTIBODY/ANTIGEN ([place] DPH) Routine 05/23/2023 11:50 AM EDT HM PAP/HPV Routine 08/26/2022 from Last 3 Months or Most Recently Relevant to Health Maintenance Results * (ABNORMAL) CBC auto differential (06/14/2025 9:00 AM EST) White Blood Count 8.2 4.8 - 10.8 X10*3/uL [facility] Red Blood Count 5.07 4.20 - 5.50 X10*6/uL [facility] Hemoglobin 13.1 12.0 - 16.0 g/dl [facility] Hematocrit 40.8 37.0 - 47.0 % [facility] Mean Corpuscular Volume 80.5 80.0 - 98.0 fL [facility] Mean Corpuscular Hemoglobin 25.8(L) 27.0 - 33.0 pg [facility] Mean Corpuscular HGB Conc 32.1 31.0 - 35.0 g/dl [facility] Red Cell Distribution Width 14.5 11.0 - 16.0 % [facility] Platelet Count 356 160 - 400 X10*3/uL [facility] Mean Platelet Volume 10.7 9.4 - 12.3 fL [facility] Neutrophils Percent Auto 83.1(H) 45 - 73 % [facility] Imm Gran Pct Auto 0.4 0.0 - 0.4 % [facility] Lymphocytes Percent Auto 10.9(L) 20 - 40 % [facility] Monocytes Percent Auto 5.2 2 - 11 % [facility] Eosinophils Percent Auto 0.2 0 - 4 % [facility] Basophils Percent Auto 0.2 0 - 2 % [facility] NRBC Pct Auto 0.0 0.0 - 0.2 /100WBC [facility] Neutrophils Absolute Auto 6.8 2.0 - 8.3 x10*3/uL [facility] Imm Gran Abs Auto 0.03 0.00 - 0.03 X10*3/uL [facility] Lymphocytes Absolute Auto 0.9(L) 1.2 - 4.9 X10*3/uL [facility] Monocytes Absolute Auto 0.4 0.1 - 1.2 X10*3/uL [facility] Eosinophils Absolute Auto 0.0 0.0 - 0.4 X10*3/uL [facility] Basophils Absolute Auto 0.0 0.0 - 0.2 X10*3/uL [facility] NRBC Abs Auto 0.000 0.0 - 0.012 X10*3/uL [facility] 06/14/2025 9:00 AM EST 06/14/2025 9:02 AM EST us Generic External Data Provider LAB BLOOD ORDERAB LES Final Result [facility] [address] [place] [address] [phone] * Hepatitis B, C Profile (05/23/2023 11:50 AM EDT) ~Hepatitis B Surface Antibody NONREACTIVE Nonreactive [facility] Comment:Nonreactive: < 8.00 mIU/mL Hepatitis B Core Antibody Nonreactive Nonreactive [facility] Hepatitis C Antibody Nonreactive Nonreactive [facility] Comment:Antibodies to HCV no t detected; does not exclude early acuteHCV infection. Hepatitis B Surface Ag Negative Negative [facility] 05/23/2023 11:5 0 AM EDT 05/23/2023 1:38 PM EDT Valery Howe [facility] LAB BLOOD ORDERABLES Final Res ult Performing Organization Address [facility] de Phone Number [facility] [address] [place] [phone] * HIV Ab/Ag ([facility]) (05/23/2023 11:50 AM EDT) Pathologist [facility] HIV AB/AG Nonreactive Nonreactive [facility] Comment:HIV-1 p24 Ag and/or HIV-1/HIV-2 Ab not detected.A test result that is nonreactive does not exclude thepossibility of exposure to or infection with HIV-1 and/orHIV-2. Nonreactive results in this assay for individualswith prior exposure to HIV-1 and/or HIV-2 may be due toantigen and antibody levels that are below the limit ofdetection of this assay.The [facility] HIV Ag/Ab Combo assay result andsupplemental assay results should be interpreted inconjunction with the patient's clinical presentation,history and other laboratory results. If the results areinconsistent with clinical evidence, additional testing issuggested to confirm the result. 05/23/2023 11:5 0 AM EDT 05/23/2023 1:38 PM EDT Valery Howe [facility] LAB BLOOD ORDERABLES Final Res ult Performing Organization Address [facility] Co de Phone Number [facility] [address] [place] [address] [phone] * Pap Smear (08/26/2022) Pap Negative for intraephithelial lesion or malignancy Negative for intraephithelial lesion or malignancy, Other us Historical Provider HEALTH MAINTENANCE Final Result from Last 3 Months or Most Recently Relevant to Health Maintenance Insurance [employer] Care Teams Alum Plant Operator Relationship Specialty Start Date End Date Smita Marr NP [address] [place] [phone] PCP - General Family Medicine 05/13/23
--- OUTSIDE RECORDS SUMMARY | 2025-06-14 09:56 | XMS_ITS | Clinical Summary ---
Author Organization [facility] [employer] [facility] Address [address] [place] [address] Care Team Providers Care Head Still Operator Name Role Phone Unavailable Primary Care Provider Unavailabl e Social History Tobacco Use Types Packs/Day Years Used Date Smoking Tobacco: Never Assessed Comments Unknown Sex and Gender Information Value Date Recorded Sex Assigned at Not on file Legal Sex Female 9:03 AM EDT Gender Identity Not on file Sexual Orientation Not on file Plan of Treatment Not on file Medical Devices Not on file
--- OUTSIDE RECORDS SUMMARY | 2025-06-14 09:56 | XMS_ITS | Encounter Summary ---
Author Organization [employer] Address [address] [facility] [address]t [place] [address] Care Team Providers Care College Hire Name Role Phone Jsuta Smita MAYELA Primary Care Provider [phone] Reason for Visit * Reason Comments Med Change Request Encounter Details Date Type Department Care Team (Late st Contact Info) Description 05/23/2023 Refill [facility] MEDICINE [address] [place] [address] Valery Howe FNP Social History Tobacco Use [...] with others, in a hotel, in a chcf, living outside on the street, on a [...] the past 12 months, has t he [employer], gas, oil or water [employer] threatened to shut off services in your [...] encounter Miscellaneous Notes * Telephone Encounter - MARISSA Serrano - 05/23/2023 2:26 PM EDT Approving, but needs appt for additional refills. documented in this encounter Plan of Treatment Not on file documented as of this encounter Visit Diagnoses Not on filedocumented in this encounter Additional Health Concerns Assessment Noted Time PHQ-9 Depression Total Score: 3 11/12/19 2:18 PM EDT documented as of this encounter Care Teams College Hire Relationship Specialty Start Date End Date Smita Marr NP [address] [place] [phone] PCP - General Family Medicine 05/13/23 documented as of this encounter
--- OUTSIDE RECORDS SUMMARY | 2025-06-14 09:56 | XMS_ITS | Encounter Summary ---
Author Organization [employer] Address [address] [facility] 7t [place] [address] Care Team Providers Care Reconciling Clerk Name Role Phone Smita Marr MAYELA Primary Care Provider [phone] Encounter Details Date Type Department Care Team (Late st Contact Info) Description 06/14/2025 Orders Only GENERIC EXTERNAL DATA DEPARTMENT Provider, Generic External Data Social History Tobacco Use Types Packs/Day Years [...] with others, in a hotel, in a care home, living outside on the street, on a [...] the past 12 months, has t he electric, gas, oil or water company threatened to shut off services in your [...] AM EDT documented as of this encounter Plan of Treatment Not on file documented as of this encounter Procedures Procedure Name Priority Date/Time Associated Diagnosis Comments CBC WITH AUTO DIFFERENTIAL Routine 06/14/2025 9:00 AM EST documented in this encounter Results * (ABNORMAL) CBC auto differential (06/14/2025 9:00 AM EST) White Blood Count 8.2 4.8 - 10.8 X10*3/uL [facility] Red Blood Count 5.07 4.20 - 5.50 X10*6/uL [facility] Hemoglobin 13.1 12.0 - 16.0 g/dl [facility] Hematocrit 40.8 37.0 - 47.0 % [facility] Mean Corpuscular Volume 80.5 80.0 - 98.0 fL [facility] Mean Corpuscular Hemoglobin 25.8(L) 27.0 - 33.0 pg [facility] Mean Corpuscular HGB Conc 32.1 31.0 - 35.0 g/dl [facility] Red Cell Distribution Width 14.5 11.0 - 16.0 % [facility] Platelet Count 356 160 - 400 X10*3/uL [facility] Mean Platelet Volume 10.7 9.4 - 12.3 fL [facility] Neutrophils Percent Auto 83.1(H) 45 - 73 % [facility] Imm Gran Pct Auto 0.4 0.0 - 0.4 % [facility] Lymphocytes Percent Auto 10.9(L) 20 - 40 % [facility] Monocytes Percent Auto 5.2 2 - 11 % [facility] Eosinophils Percent Auto 0.2 0 - 4 % [facility] Basophils Percent Auto 0.2 0 - 2 % [facility] NRBC Pct Auto 0.0 0.0 - 0.2 /100WBC [facility] Neutrophils Absolute Auto 6.8 2.0 - 8.3 x10*3/uL [facility] Imm Gran Abs Auto 0.03 0.00 - 0.03 X10*3/uL [facility] Lymphocytes Absolute Auto 0.9(L) 1.2 - 4.9 X10*3/uL [facility] Monocytes Absolute Auto 0.4 0.1 - 1.2 X10*3/uL [facility] Eosinophils Absolute Auto 0.0 0.0 - 0.4 X10*3/uL [facility] Basophils Absolute Auto 0.0 0.0 - 0.2 X10*3/uL [facility] NRBC Abs Auto 0.000 0.0 - 0.012 X10*3/uL [facility] 06/14/2025 9:00 AM EST 06/14/2025 9:02 AM EST us Generic External Data Provider LAB BLOOD ORDERAB LES Final Result Performing Organization Address City/State/[facility] Co de Phone Number [facility] [address] [place] [phone] documented in this encounter Visit Diagnoses Not on filedocumented in this encounter Additional Health Concerns Assessment Noted Time PHQ-9 Depression Total Score: 3 11/12/19 23 2:18 PM EDT documented as of this encounter Care Teams Reconciling Clerk Relationship Specialty Start Date End Date Smita Marr NP [address] [place] [address] PCP - General Family Medicine 05/13/23 documented as of this encounter
--- OUTSIDE RECORDS SUMMARY | 2025-06-14 09:56 | XMS_ITS | Encounter Summary ---
Author Organization [employer] Address [address] [facility] 7t [place] [address] Care Team Providers Care Executive Director Of Marketing Name Role Phone Smita Marr NP Primary Care Provider Reason for Visit * Reason Onset Date Comments Referral 11/04/2023 Encounter Details Date Type Department Care Team ([facility] st Contact Info) Description 11/04/2023 Telephone [facility] MEDICINE [address] [place], [place] [phone] Smita Marr NP [address] [place] [address] Referral Social History Tobacco Use Types Packs/Day Years Used Date Smoking Tobacco: Never Smokeless Tobacco: Never Alcohol Use Standard Drinks/Week Comments Not Currently 0 (1 standard drink = 0.6 oz pur e alcohol) Depression Answer Date Recorded Patient Health Questionnaire-9 Score 3 11/11/2022 Housing Stability Answer Date Recorded What is your housing situation today? I have og kathleen 09/17/[address] you li ve. Do you have problems with any of the following? None of the above 09/17/2023 Food Insecurity Answer Date Recorded Within the [...] from getting things needed for daily living? No 09/17/2023 Utilities Answer Date Recorded In the past [...] encounter Miscellaneous Notes * Telephone Encounter - Aracely Lazaro RN - 11/13/2023 3:50 PM EDT TC placed to pt in regards to request for new cardiology referral. Pt states that she had a cardiacablation at age 10 and also has been recommended being followed by a senior scientist for her second . Pt has been in touch with provider at [facility] on [address] [place] [address]. Forwarding to provider for review. * Telephone Encounter - Renee Shaikh - 11/13/2023 12:01 PM EDT TC from pt returning call . Please contact pt at [phone]. * Telephone Encounter - Chet Charles RN - 11/04/2023 3:28 PM EDT T/C to pt. For below message. Call direct goes on voice message , states the person you are callingcannot accept the call right now, sorry for inconvenience. Not able to LVM. * Telephone Encounter - Jamison Wong - 11/04/2023 12:38 PM EDT TC from pt requesting new referral: Address: [address] [place] [address] Facility Name: [facility] Cardiology Type of Specialist: Cardiology Provider : Dr. Josh Chavez documented in this encounter Plan of Treatment Not on file documented as of this encounter Visit Diagnoses Not on filedocumented in this encounter Additional Health Concerns Assessment Noted Time PHQ-9 Depression Total Score: 3 11/12/19 2:18 PM EDT documented as of this encounter Care Teams Executive Director Of Marketing Relationship Specialty Start Date End Date Smita Marr NP [address] [place] [phone] PCP - General Family Medicine 05/13/23 documented as of this encounter
--- OUTSIDE RECORDS SUMMARY | 2025-06-14 09:56 | XMS_ITS | Clinical Summary ---
Author [facility] Address [address] [place] [address] Care Team Providers Care Sample Finisher Name Role Phone April Camarillo MD Primary Care Provider [phone] Social History Tobacco Use Types Packs/Day Years Used Date Smoking Tobacco: Never Assessed Comments Unknown Sex and Gender Information Value Date Recorded Sex Assigned at Not on file Legal Sex Female 2:00 AM EST Gender Identity Not on file Sexual Orientation Not on file Plan of Treatment Health Maintenance Due Date Last Done Comments HPV Vaccines (1 - 3-dose series) 2014 DTaP,Tdap,and Td Vaccines (1 - Tdap) 2018 Hepatitis B Vaccines (1 of 3 - 19+ 3-dose series) 2018 Cervical Cancer Screening: P ap Smear 2020 HIV Screening 07/07/2022 Hepatitis C Screening 07/07/2022 Social Influencers of Health Screening 07/07/2022 Depression Screening 08/04/2024 COVID-19 Vaccine ( - 2024-2 6 season) 2025 Influenza Vaccine (#1) 2025 RSV Immunization Adult Patie nts (1 - 1-dose 75+ series) 2074 HIB Vaccines Aged Out No longer eligi ble based on patient's age to complete this topic Hepatitis A Vaccines Aged Out No long er eligible based on patient's age to complete this topic IPV Vaccines Aged Out No longer eligi ble based on patient's age to complete this topic MMR Vaccines Aged Out No longer eligi ble based on patient's age to complete this topic Meningococcal ACWY Vaccine Aged Out N o longer eligible based on patient's age to complete this topic Meningococcal B Vaccine Aged Out No l onger eligible based on patient's age to complete this topic Pneumococcal Vaccine: Pediat rics (0 to 5 Years) and At-Risk Patients (6 to 49 Years) Aged Out No longer eligible b ased on patient's age to complete this topic RSV Immunization Patients Un suha 20 months Aged Out No longer eligible b ased on patient's age to complete this topic Varicella Vaccines Aged Out No longer eligible based on patient's age to complete this topic Care Teams Sample Finisher Relationship Specialty Start Date End Date April Camarillo MD [address] [place] [phone] PCP - General 08/04/11
[2025-06-14 11:07] LABS: Appearance Urine Clear; Glucose Urine UA Negative (Negative); PH 6.0 (5.0-9.0); Specific Gravity - Urine >= 1.030 (1.005-1.025); UMIC TRIGGER UACC YES
[2025-06-14 11:08] LABS: UPreg QC Valid YES
[2025-06-14] MEDS: iohexoL 350 MG/ML 100 ML INFUS..BTL IV (11:11)
[2025-06-14 12:27] VITALS: BP 139/85; PULSE 89; RESP 16; O2SAT 99
[2025-06-14 13:26] VITALS: RESP 25
--- NOTE | 2025-06-14 22:28 | PC.NURSE ---
not primary nurse, just departed pt off tracker
== END 2025-06-14 22:28 | disposition home or self-care (01) ==
PROVIDERS: Physician Assistant Medical; Emergency Provider Emergency Medicine
DX: K52.9 Noninfective gastroenteritis and colitis, unspecified (principal); R11.2 Nausea with vomiting, unspecified; R10.30 Lower abdominal pain, unspecified
CPT/HCPCS: 36415; 74177; 80048; 80076; 81001; 81025; 83690; 84702; 85025; 96361; 96365; 96375; 96376; 99284; 99285; J0131; J1308; J1885; J2270; J2405; Q9967

== ENCOUNTER → 2025-06-14 09:43 | Outpatient (BNV) | payer OTHER, SELFPAY | PROVIDERS: Emergency Provider Emergency Medicine; Visit Provider Radiology Diagnostic Radiology | DX: R16.0 Hepatomegaly, not elsewhere classified (principal); R91.8 Other nonspecific abnormal finding of lung field | CPT/HCPCS: 74177 ==

== ENCOUNTER 2025-07-11 07:24 | Emergency (ER) | payer OTHER, SELFPAY ==
--- NOTE | ~2025-07-11 | CT_ITS ---
EXAMINATION: CT ABDOMEN PELVIS WITH IV CONTRAST HISTORY: hx of IBD, rule out Crohn's flare COMPARISON: Comparison is made with the prior examination dated 06/14/2025. TECHNIQUE: CT scan of the abdomen and pelvis was performed following administration of 85 mL Omnipaque 350 using standard departmental protocol. Coronal and sagittal reformatted images were generated and reviewed. Oral contrast material was not administered at the request of the referring physician. This CT exam was performed with one or more of the following dose reduction techniques: automated exposure control, adjustment of the mA and/or kV according to patient size, use of iterative reconstruction technique. DLP: 566 mGy-cm FINDINGS: LOWER CHEST: The visualized lung bases are clear. There is no pleural effusion. CARDIOVASCULATURE: The heart is normal in size. There is no pericardial effusion. LIVER: The liver is normal in size and contour. No liver mass is identified. The hepatic and portal veins are patent. GALLBLADDER / BILE DUCTS: The gallbladder is unremarkable. There is no intra or extrahepatic biliary ductal dilatation. SPLEEN: The spleen is normal in size. No focal splenic lesion is identified. PANCREAS: The pancreas is unremarkable in appearance. ADRENAL GLANDS: Within normal limits. KIDNEYS/RETROPERITONEUM: No renal calculi are identified. There is no hydronephrosis. Again seen is a 1.1 cm left renal cyst. LYMPH NODES: No abdominal or pelvic lymphadenopathy. VASCULATURE: The abdominal aorta is normal in caliber. MESENTERY/PERITONEUM: No free fluid. No masses. There is no free intraperitoneal gas. STOMACH: There is a small hiatal hernia. The remainder of the stomach is collapsed. SMALL BOWEL: The small bowel is normal in caliber. There is no abnormal wall thickening or perienteric inflammatory stranding. COLON: The colon is unremarkable. APPENDIX: The appendix is not seen, however no inflammatory changes are seen adjacent to the cecum. URINARY BLADDER/PELVIC ORGANS: The urinary bladder is unremarkable. The uterus and ovaries are unremarkable. BONES / SOFT TISSUES: No suspicious bony or soft tissue abnormalities. CT/CT abdomen pelvis w IV con IMPRESSION: Small hiatal hernia. No abnormal small bowel wall thickening or small bowel obstruction. Electronically signed by: Inocente Frausto MD 07/11/2025 10:20 AM NIKKY LEW
[2025-07-11 07:34] VITALS: BP 114/63; PULSE 104; RESP 18; TEMP 36.2; O2SAT 100; BMI 31.9
--- NOTE | 2025-07-11 07:42 | ED_ITS ---
HPI - Abdominal Pain General Chief Complaint: Abdominal Pain Stated Complaint: Fever Body Aches Time Seen by Provider: 07/11/25 07:39 Source: patient and RN notes reviewed Mode of arrival: ambulatory Limitations: no limitations History of Present Illness ED Provider: Ginger Cartagena PA-C HPI narrative: 25-year-old female presenting to the ED for evaluation of acute abdominal pain that started last night and worsened this morning. The pain is associated with nausea, chills, low-grade fever, and body aches. She recalls a similar episode ?a couple of weeks ago? when a CT scan was performed; she was told to follow up with a specialist but does not recall the exact diagnosis (possibilities mentioned to her included colitis or diverticulitis). She is status-post cholecystectomy and has been eating healthier, avoiding greasy foods. Her last meal was oatmeal yesterday morning, after which chills began; she could not eat after that meal. She took Tylenol yesterday and again around 05:00 today without relief. She denies sick contacts, sore throat, cough, headache, dizziness, or (tubal ligation). Review of Systems: * General: Positive for chills, fever, body aches. * GI: Abdominal pain; nausea; one episode of vomiting on 06/23; denies hematemesis; last bowel movement this morning without pain or blood. * : Last urination this morning without dysuria or hematuria. * Respiratory/ENT: Denies sore throat, cough, congestion. * Neurologic: Denies headache or dizziness. Related Data Home Medications ?Medication ?Instructions ?Recorded ?Confirmed albuterol sulfate 90 mcg/actuation 2 puff inhalation Q 6H PRN wheezing 08/07/23 08/07/23 aerosol inhaler (Ventolin HFA) fluticasone propionate 44 2 puff inhalation BID 08/07/23 mcg/actuation HFA aerosol inhaler (Flovent HFA) Previous Rx's ?Medication ?Instructions ?Recorded ibuprofen 600 mg tablet 600 mg PO Q6H PRN pain #30 t abs 09/03/23 oxycodone-acetaminophen 5 mg-325 1 tab PO Q4-6H PRN pa in #25 tabs 09/03/23 mg tablet (Percocet) acetaminophen 500 mg tablet 500 mg PO Q6H PRN pain #30 tabs 06/14/25 (Tylenol Extra Strength) ondansetron 4 mg disintegrating 4 mg PO Q6H PRN nausea and 06/14/25 tablet vomiting #10 tabs ondansetron 4 mg disintegrating 4 mg PO Q8H PRN nausea and 07/11/25 tablet vomiting #10 tabs Allergies Allergy/AdvReac Type Severity Reaction Status Date / Time amoxicillin Allergy Anaphylaxis, Verified 07/11/25 07:34 Hives Penicillins Allergy Anaphylaxis, Verified 07/11/25 07:34 Hives Review of Systems Review of Systems Yes all other systems are reviewed and are negative [facility] Past Medical History Attestation statement: The following information was validated with the patient. Source: old records reviewed and nursing notes reviewed Medical History [facility] Surgical History History of laparoscopic cholecystectomy (~09/03/23) Social History Social History Alcohol intake: never Patient Tobacco Use Status: Never used Tobacco Smoked in Last 30 Days: No Second Hand Smoke Exposure: No Use of substances other than those prescribed or required for medical reasons: No Advance Directives: No Advance Directives Information Provided: Yes Do you have a plan to hurt others: No Plan Physical Exam ED Exam Exam: General: Appears in no acute distress, appears well nourished body habitus is obese, appears stated age. No septic or ill-appearing. Vitals reviewed normal, PMH/Social and Surgical hx reviewed including allergies and current medications. - reviewed for prior visits here and read as it pertains to similar CC. Head: Normocephalic, no obvious trauma or skin lesions noted. Eyes: EOMI, conjunctiva and sclera clear ENMT: moist oral mucosa, uvula midline no trismus, no tonsillar edema or exudate, tolerating secretions Neck: trachea midline, no lymphadenopathy Cardiovascular: peripheral perfusion normal, Regular heart rate and rhythm (fluctuates normal at rest) Respiratory: no respiratory distress Abdomen: nondistended, obese, tender epigastric region (gallbladder absent), no gaurding, negative peritoneal signs, no bladder or CVA ttp Extremities: warm and moving without difficulty unless otherwise detailed in physical exam if applicable. Psych: Cooperative, calm Neuro: Alert and oriented. Vital Signs: Vital Signs - 24 hr 07/11/25 07:34 07/11/25 08:21 07/11/25 10:40 Temperature 97.1 F 100.7 F H 99.2 F Pulse Rate 104 H 104 H 110 H Respiratory Rate 18 20 20 Blood Pressure 114/63 113/70 113/56 L Pulse Oximetry 100 100 100 Oxygen Delivery Method Room Air Room Air Room Air BMI result Body Mass Index 31.9 Medical Decision Making Medical Decision Making MDM Narrative: 0818: mag is 1.4, K is 3.2 will replenish with IVFs. Leukocytosis present 13.8 with shift. She does not appear toxic or septic. Likely from vomiting. Sepsis is not suspected. Strep is negative. CT abd/ pelvis with concern of IBD of crohns vs UC. 25-year-old female with acute epigastric abdominal pain, low-grade fever, leukocytosis, mild electrolyte abnormalities, and recent CT showing no acute pathology aside from small hiatal hernia. Clinical picture felt most consistent with a self-limited viral syndrome; other causes (including inflammatory bowel disease flare) are being considered. Pancreatitis has been excluded by normal lipase. Problem #1: Abdominal pain ? likely viral gastroenteritis vs. IBD flare (pancreatitis excluded) Plan: * Pancreatitis excluded by normal lipase. * Supportive care provided: IV fluid hydration and electrolyte repletion. * Viral gastroenteritis remains the most likely diagnosis; IBD flare is still possible given history and prior CT findings. * Patient is clinically stable and safe for discharge with strict return precautions for worsening pain, persistent fever, vomiting, or inability to tolerate oral intake. Problem #2: Leukocytosis with fever Plan: * Blood cultures obtained. * Monitor clinical status; lactate 1.0 mmol/L (low concern for sepsis). Problem #3: Electrolyte abnormalities ? hypomagnesemia & hypokalemia Plan: * IV magnesium and potassium replacement. * Re-check electrolytes after repletion. Disposition Patient received IV fluids and electrolyte repletion in ED and is clinically stable. She will be discharged home with instructions to maintain hydration and to return immediately for worsening symptoms or new concerns. Medical Decision Making (MDM) Summary of Presentation & Pertinent History: Bladimir is a 25-year-old female presenting with acute onset epigastric abdominal pain, nausea, chills, low-grade fever, and body aches. She reports a similar episode several weeks ago, with prior CT showing possible inflammatory bowel disease. She is status-post cholecystectomy and has been eating a healthier diet, avoiding greasy foods. No sick contacts, headache, dizziness, or risk. She took Tylenol without relief. Differential Diagnosis Considered: - Viral gastroenteritis (most likely given constellation of symptoms and negative infectious workup) - Inflammatory bowel disease (IBD) flare (history and prior CT findings) - Pancreatitis (considered due to epigastric pain and post-cholecystectomy status; now excluded by normal lipase) Other less likely causes (e.g., surgical abdomen, sepsis) considered but felt unlikely based on exam and labs. Rationale for Diagnostic Testing: - CBC: Evaluate for leukocytosis and infection - Electrolytes: Assess for dehydration and metabolic derangements - Lipase: Rule out pancreatitis - Blood cultures: Screen for bacteremia/sepsis due to fever and leukocytosis - Strep screen and viral panel: Rule out respiratory viral/bacterial causes - Review of prior CT: Assess for intra-abdominal pathology, IBD, or surgical causes Interpretation of [place] Findings: - Leukocytosis (WBC 13.8 K/?L) with left shift, but patient non-toxic and afebrile on arrival - Low magnesium (1.4 mg/dL) and potassium (3.2 mmol/L), likely secondary to poor oral intake and GI losses - Lactate 1.0 mmol/L, reassuring for low risk of sepsis - Strep, COVID-19, Influenza, RSV PCR all negative - CT abdomen/pelvis (06/14/2025): Small hiatal hernia, no acute intra-abdominal pathology, possible IBD noted previously - No evidence of surgical abdomen or acute infectious process on exam or imaging - Normal lipase excludes pancreatitis as a cause of her symptoms. Clinical Reasoning for Management Decisions: - IV fluid hydration initiated for symptomatic relief and correction of mild dehydration - IV magnesium and potassium repletion for documented hypomagnesemia and hypokalemia - Supportive care provided; pancreatitis excluded by normal lipase - Blood cultures and lactate obtained to rule out occult sepsis; low lactate and stable exam decrease concern for sepsis - Strict return precautions provided for worsening pain, persistent fever, vomiting, or inability to tolerate oral intake - Close monitoring in ED confirmed clinical stability and improvement with supportive care Disposition Rationale: Patient demonstrated clinical improvement with ED management (IV fluids, electrolyte repletion). She remained hemodynamically stable, non-toxic, and able to tolerate oral intake. No evidence of surgical abdomen or sepsis based on exam and laboratory findings. She is safe for discharge with instructions for hydration, close follow-up, and strict return precautions for any worsening symptoms or new concerns. Differential Diagnosis Differential Diagnoses: The differential diagnosis associated with the presentation includes Admission/Observation Consideration of admission/observation: Escalation of care including admission/observation considered Lab Data MDM Lab Attestation statement: I reviewed the patient's lab results. 07/11/25 07:50 07/11/25 07:50 Labs: Lab Results 07/11/25 07/11/25 07/11/25 Range/Units 07:50 07:54 08:20 WBC 13.8 H (4.8-10.8) X10*3/uL RBC 4.74 (4.20-5.50) X10*6/uL Hgb 12.4 (12.0-16.0) g/dl Hct 38.3 (37.0-47.0) % MCV 80.8 (80.0-98.0) fL MCH 26.2 L (27.0-33.0) pg MCHC 32.4 (31.0-35.0) g/dl RDW 13.8 (11.0-16.0) % Plt Count 333 (160-400) X10*3/uL MPV 10.8 (9.4-12.3) fL Immature Gran % (Auto) 0.6 H (0.0-0.4) % Neut % (Auto) 86.8 H (45-73) % Lymph % (Auto) 6.0 L (20-40) % [place] % (Auto) 6.5 (2-11) % Eos % (Auto) 0.0 (0-4) % Baso % (Auto) 0.1 (0-2) % Lymph # (Auto) 0.8 L (1.2-4.9) X10*3/uL [place] # (Auto) 0.9 (0.1-1.2) X10*3/uL Eos # (Auto) 0.0 (0.0-0.4) X10*3/uL Baso # (Auto) 0.0 (0.0-0.2) X10*3/uL Abs Immat Gran (auto) 0.08 H (0.00-0.03) X10*3/uL Absolute Neuts (auto) 12.0 H (2.0-8.3) x10*3/uL Absolute Nucleated RBC 0.000 (0.0-0.012) X10*3/uL Nucleated RBC % (auto) 0.0 (0.0-0.2) /100WBC Sodium 138 (135-145) mmol/L Potassium 3.2 L (3.3-5.1) mmol/L Chloride 105 (96-108) mmol/L Carbon Dioxide 24 (22-29) mmol/L Anion Gap 12 (12-20) BUN 9 (9-16) mg/dL Creatinine 0.83 (0.5-1.4) mg/dL Estim Creat Clear Calc 108.0 Estimated GFR > 60 Random Glucose 94 (60-115) mg/dL Lactic Acid (0.5-2.0) mmol/L Calcium 8.9 (8.4-10.2) mg/dL Magnesium 1.4 L* (1.6-2.6) mg/dL Total Bilirubin 1.7 H (0.0-1.0) mg/dL AST 17 (5-31) U/L ALT 11 (0-31) U/L Alkaline Phosphatase 84 (39-117) U/L Total Protein 7.4 (6.5-8.0) g/dL Albumin 4.7 (3.5-5.0) g/dL Lipase 12 (8-78) U/L Influenza Type A (PCR) NEGATIVE (Negative) Influenza Type B (PCR) NEGATIVE (Negative) RSV RNA Qual (PCR) NEGATIVE (Negative) SARS-CoV-2 RNA (RT-PCR) NEGATIVE (Negative) S. pyogenes GrpA RADHA Negative (Negative) 07/11/25 Range/Units 08:37 WBC (4.8-10.8) X10*3/uL RBC (4.20-5.50) X10*6/uL Hgb (12.0-16.0) g/dl Hct (37.0-47.0) % MCV (80.0-98.0) fL MCH (27.0-33.0) pg MCHC (31.0-35.0) g/dl RDW (11.0-16.0) % Plt Count (160-400) X10*3/uL MPV (9.4-12.3) fL Immature Gran % (Auto) (0.0-0.4) % Neut % (Auto) (45-73) % Lymph % (Auto) (20-40) % [place] % (Auto) (2-11) % Eos % (Auto) (0-4) % Baso % (Auto) (0-2) % Lymph # (Auto) (1.2-4.9) X10*3/uL [place] # (Auto) (0.1-1.2) X10*3/uL Eos # (Auto) (0.0-0.4) X10*3/uL Baso # (Auto) (0.0-0.2) X10*3/uL Abs Immat Gran (auto) (0.00-0.03) X10*3/uL Absolute Neuts (auto) (2.0-8.3) x10*3/uL Absolute Nucleated RBC (0.0-0.012) X10*3/uL Nucleated RBC % (auto) (0.0-0.2) /100WBC Sodium (135-145) mmol/L Potassium (3.3-5.1) mmol/L Chloride (96-108) mmol/L Carbon Dioxide (22-29) mmol/L Anion Gap (12-20) BUN (9-16) mg/dL Creatinine (0.5-1.4) mg/dL Estim Creat Clear Calc Estimated GFR Random Glucose (60-115) mg/dL Lactic Acid 1.0 (0.5-2.0) mmol/L Calcium (8.4-10.2) mg/dL Magnesium (1.6-2.6) mg/dL Total Bilirubin (0.0-1.0) mg/dL AST (5-31) U/L ALT (0-31) U/L Alkaline Phosphatase (39-117) U/L Total Protein (6.5-8.0) g/dL Albumin (3.5-5.0) g/dL Lipase (8-78) U/L Influenza Type A (PCR) (Negative) Influenza Type B (PCR) (Negative) RSV RNA Qual (PCR) (Negative) SARS-CoV-2 RNA (RT-PCR) (Negative) S. pyogenes GrpA RADHA (Negative) Independent Interpretation I performed an independent interpretation of an: CT Scan Interpretation: no acute findings Radiology Impression Discussion of test interpretation with radiology: I have reviewed the radiologist's reading. Chronic Conditions Patient?s care impacted by: Other Social Determinants Patient?s care significantly limited by Social Determinants of Health including: Other Social Determinant of Health Medications Administered Generic Name Dose Route Start Last Admin Trade Name Freq PRN Reason Stop Dose Admin Potassium Chloride 10 meq in 100 mls @ 100 mls/hr 07/11/25 09:00 07/11/25 09:22 Potassium Chloride/H20 IV 07/11/25 12:59 100 mls/hr Q1H CLIVE Administration Discontinued Medications Generic Name Dose Route Start Last Admin Trade Name Freq PRN Reason Stop Dose Admin Acetaminophen 975 mg 07/11/25 10:07 07/11/25 10:43 Acetaminophen 325 Mg Tablet PO 07/11/25 10:08 975 mg ONCE ONE Administration Sodium Chloride 1,000 mls @ 999 mls/hr 07/11/25 08:19 07/11/25 08:44 Ns IV 07/11/25 09:19 999 mls/hr .Q1H1M ONE Administration Magnesium Sulfate 2 gm in 50 mls @ 150 mls/hr 07/11/25 08:19 07/11/25 08:43 Magnesium Sulfate/H2o IV 07/11/25 08:38 150 mls/hr ONCE ONE Administration Iohexol 100 ml 07/11/25 10:06 07/11/25 10:07 Iohexol 350 Mg/Ml 100 Ml Infus..Btl IV 07/11/25 10:07 85 ml ONCE ONE Administration Ondansetron HCl 4 mg 07/11/25 07:50 07/11/25 08:15 Ondansetron Odt 4 Mg Tab.Rapdis TRANSLINGU 07/11/25 07:51 4 mg ONCE ONE Administration Critical Care Time Critical Care Time Critical Care Time: Yes Total Critical Care Time: 40 Attestation: This patient required critical care. Due to the fact that the patient required a significant amount of one on one physician ? patient contact time, ordering and review of studies, arranging urgent treatment with development of a management plan, evaluation of patient's response to treatment with frequent reassessments, and discussions with other providers this patient required critical care time in excess of 30 minutes. Critical care time was indicated due to the inherent instability and/or potential for instability in this patient. The critical care time that is allocated to this patient is above and beyond any time spent on any other billable procedures performed on this patient. Discharge Plan Discharge Clinical Impression: Gastroenteritis, Acute viral syndrome, Hypomagnesemia, Acute hypokalemia Patient Disposition: Home, Self-Care Additional Instructions: Discharge Summary Date of Visit: July 11, 2025 Location: Emergency Seasoner: Ginger Cartagena PA-C CHIEF COMPLAINT Abdominal pain with nausea, chills, and fever. HISTORY OF PRESENT ILLNESS 25-year-old female who presented to the emergency department with acute epigastric abdominal pain that began the night prior to presentation and worsened on the morning of July 11, 2025. Associated symptoms included nausea, chills, low-grade fever, and body aches. Her last meal was oatmeal on the morning of July 10, 2025, after which chills began; she was unable to eat thereafter. She took acetaminophen (Tylenol) on two occasions without symptom relief. The patient reported a similar episode approximately two weeks prior, during which a computed tomography (CT) scan of the abdomen and pelvis was performed. She was advised to follow up with a specialist and recalls being told the findings could represent colitis or diverticulitis. She denies sick contacts, sore throat (on initial history), cough, headache, dizziness, or risk of (status-post bilateral tubal ligation). She is status-post cholecystectomy and reports adherence to a healthier diet, avoiding greasy foods. She had one episode of vomiting on June 23, 2025. Last bowel movement and urination occurred on the morning of presentation without pain, blood, dysuria, or hematuria. PAST MEDICAL HISTORY - Status-post cholecystectomy - Status-post bilateral tubal ligation - Recent abdominal imaging (CT abdomen/pelvis on June 14, 2025) showing small hiatal hernia without acute intra-abdominal pathology; possible inflammatory bowel disease (Crohn's disease vs. ulcerative colitis) noted on prior imaging interpretation VITAL SIGNS - Blood Pressure: 114/62 mmHg - Heart Rate: 104 beats per minute (tachycardic) - Respiratory Rate: 18 breaths per minute - Temperature: 97.1?F on arrival; 100.2?F during ED course (low-grade fever) - Oxygen Saturation: 100% on room air PHYSICAL EXAMINATION - General: Appeared uncomfortable but non-toxic - HEENT: Oral mucosa moist and hydrated; no pharyngeal erythema - Lungs: Clear to auscultation bilaterally - Cardiac: Regular rhythm; tachycardic at 104 bpm - Abdomen: Soft; tender to palpation in the epigastric region; no guarding, rigidity, or rebound tenderness DIAGNOSTIC STUDIES Laboratory Results: * White Blood Cell Count: 13.8 K/?L (elevated) with left shift * Lactate: 1.0 mmol/L (normal, reassuring for low sepsis risk) * Magnesium: 1.4 mg/dL (low; normal range 1.7?2.2 mg/dL) * Potassium: 3.2 mmol/L (low; normal range 3.5?5.0 mmol/L) * Lipase: Within normal limits (pancreatitis excluded) * Streptococcal pharyngitis rapid antigen test: Negative * COVID-19, Influenza A/B, and Respiratory Syncytial Virus PCR: Negative * Blood cultures: Obtained; results pending at time of discharge Imaging: * CT Abdomen/Pelvis (June 14, 2025): Small hiatal hernia without acute intra-abdominal pathology. Prior impression mentioned possible inflammatory bowel disease (Crohn's disease vs. ulcerative colitis). No new imaging performed during this ED visit. CLINICAL IMPRESSION AND ASSESSMENT This is a 25-year-old female presenting with acute epigastric abdominal pain, low-grade fever, leukocytosis, and electrolyte abnormalities (hypomagnesemia and hypokalemia). The clinical picture is?most consistent with viral gastroenteritis , though an inflammatory bowel disease (IBD) flare remains on the differential given her recent CT findings and recurrent symptoms. Pancreatitis was excluded by normal lipase level despite her post-cholecystectomy status and epigastric pain. Infectious workup including streptococcal pharyngitis testing and respiratory viral panel was negative.[1-4]?Leukocytosis with left shift was present, but lactate was reassuringly normal at 1.0 mmol/L, reducing concern for sepsis. Electrolyte abnormalities (hypomagnesemia and hypokalemia) were attributed to poor oral intake and likely gastrointestinal losses.[1] EMERGENCY DEPARTMENT MANAGEMENT The patient received supportive care in the emergency department, including: * Intravenous fluid hydration for rehydration and symptom relief * Intravenous magnesium sulfate for correction of hypomagnesemia (magnesium repletion is essential prior to effective potassium repletion) * Intravenous potassium chloride for correction of hypokalemia * Electrolytes rechecked after repletion with normalization of values * Antipyretic therapy and symptomatic management as needed The patient demonstrated clinical improvement with fluid and electrolyte repletion and remained hemodynamically stable throughout her ED course. She tolerated oral intake and had no evidence of surgical abdomen, sepsis, or acute intra-abdominal pathology requiring admission.[1][5] DISCHARGE DIAGNOSIS * Acute gastroenteritis, likely viral etiology * Hypomagnesemia, corrected * Hypokalemia, corrected * Leukocytosis with left shift, likely reactive * History of possible inflammatory bowel disease (per prior imaging) DISCHARGE INSTRUCTIONS Medications: * Continue acetaminophen (Tylenol) 650?1000 mg orally every 6 hours as needed for fever or body aches; do not exceed 3000 mg in 24 hours * Consider anti-nausea medication ondansetron prescribed if nausea persists and you are able to tolerate oral intake Activity: * Rest at home as needed * Gradually resume normal activities as tolerated Diet: * Hydration is critical.?Drink clear fluids frequently, including water, oral rehydration solutions, clear broths, and electrolyte-containing beverages (e.g., Pedialyte, sports drinks). Aim for at least 8?10 glasses of fluid daily.[1-2] * Resume a bland diet as tolerated (e.g., bananas, rice, applesauce, toast, crackers, oatmeal). Avoid greasy, spicy, or heavy foods initially. * Advance diet gradually as symptoms improve. Follow-Up: * Follow up with a shelf drier operator within 1?2 weeks?to further evaluate your recurrent abdominal pain and prior CT findings suggestive of possible inflammatory bowel disease. This is important to establish a diagnosis and long-term management plan.[6-8] * If blood cultures return positive, you will be contacted by the emergency department or your primary care provider with further instructions. Consider scheduling a visit with your primary care provider within 3?5 days if symptoms have not fully resolved.[9-10]STRICT RETURN PRECAUTIONSReturn to the emergency department immediately or call 911 if you experience any of the following:[1-2][4-5] Worsening or severe abdominal pain, especially if sharp, localized, or associated with abdominal distension or rigidity Persistent vomiting?or inability to tolerate any oral fluids for more than 6?8 hours High fever?(temperature >=01.5?F or 38.6?C) or fever lasting more than 48 hours Signs of dehydration, including dizziness, lightheadedness, decreased urination, dark urine, dry mouth, or confusion Consider scheduling a visit with your primary care provider within 3?5 days if symptoms have not fully resolved.[9-10]STRICT RETURN PRECAUTIONSReturn to the emergency department immediately or call 911 if you experience any of the following:[1-2][4-5] Worsening or severe abdominal pain, especially if sharp, localized, or associated with abdominal distension or rigidity Persistent vomiting?or inability to tolerate any oral fluids for more than 6?8 hours High fever?(temperature >=01.5?F or 38.6?C) or fever lasting more than 48 hours Signs of dehydration, including dizziness, lightheadedness, decreased urination, dark urine, dry mouth, or confusion * Blood in vomit or stool?(red, black, or tarry stools) * Severe weakness, fainting, or altered mental status * Chest pain, shortness of breath, or difficulty breathing * Any new or concerning symptoms?that worry you DISPOSITION The patient was discharged home in stable condition with detailed discharge instructions, clear return precautions, and arrangements for outpatient follow- up with gastroenterology and primary care. FOLLOW-UP PENDING RESULTS * Blood cultures: Pending at time of discharge; patient will be contacted if positive results require further action. Prescriptions: New ondansetron 4 mg tablet,disintegrating 4 mg PO Q8H PRN (Reason: nausea and vomiting) Qty: 10 0RF No Action ondansetron 4 mg tablet,disintegrating 4 mg PO Q6H PRN (Reason: nausea and vomiting) Qty: 10 0RF acetaminophen [Tylenol Extra Strength] 500 mg tablet 500 mg PO Q6H PRN (Reason: pain) Qty: 30 0RF oxycodone-acetaminophen [Percocet] 5-325 mg tablet 1 tab PO Q4-6H PRN (Reason: pain) Qty: 25 0RF Rx Instructions: Partial Fill upon patient request. ibuprofen 600 mg tablet 600 mg PO Q6H PRN (Reason: pain) Qty: 30 0RF albuterol sulfate [Ventolin HFA] 90 mcg/actuation HFA aerosol inhaler 2 puff inhalation Q6H PRN (Reason: wheezing) fluticasone propionate [Flovent HFA] 44 mcg/actuation HFA aerosol inhaler 2 puff inhalation BID Referrals: [facility] [place] [facility] [Provider Group, Gastroenterology] Referral Note: last CT showed concern for IBD but not supportive in today's CT Clinical Impression: Gastroenteritis Stand Alone Forms: Work/School Release Print Language: Ukrainian
--- OUTSIDE RECORDS SUMMARY | 2025-07-11 07:58 | XMS_ITS | Encounter Summary ---
Author Organization [employer] Address [address] [facility] [address]t [place] [address] Care Team Providers Care Fixed Capital Clerk Name Role Phone Justa Smita MAYELA Primary Care Provider [phone] Reason for Visit * Reason Comments Med Refill Encounter Details Date Type Department Care Team (Late st Contact Info) Description 08/31/2023 Refill [facility] [address] [place] [address] Valery Howe FNP Social History Tobacco Use [...] with others, in a hotel, in a prison, living outside on the street, on a [...] the past 12 months, has t he [employer], gas, oil or water [employer] threatened to shut off services in your [...] documented as of this encounter Care Teams Fixed Capital Clerk Relationship Specialty Start Date End Date Smita Marr NP [address] [place] [phone] PCP - General Family Medicine 05/13/23 documented as of this encounter
--- OUTSIDE RECORDS SUMMARY | 2025-07-11 07:58 | XMS_ITS | Encounter Summary ---
Author Organization [employer] Address [address] [facility] 7t [place] [address] Care Team Providers Care Medical Staff Coordinator Name Role Phone Justa Smita MAYELA Primary Care Provider [phone] Reason for Visit * Reason Comments Med Change Request Encounter Details Date Type Department Care Team (Late st Contact Info) Description 05/23/2023 Refill [facility] [address] [place] [address] Valery Howe FNP Social History Tobacco Use [...] with others, in a hotel, in a longterm, living outside on the street, on a [...] the past 12 months, has t he [employer], gas, oil or water [employer] threatened to shut off services in your [...] documented as of this encounter Care Teams Medical Staff Coordinator Relationship Specialty Start Date End Date Smita Marr NP [address] [place] [phone] PCP - General Family Medicine 05/13/23 documented as of this encounter
--- OUTSIDE RECORDS SUMMARY | 2025-07-11 07:58 | XMS_ITS | Encounter Summary ---
Author Organization [facility] Address [address] [facility] 7t [place] [address] Care Team Providers Care Refuse Collector Supervisor Name Role Phone Smita Marr NP Primary Care Provider [phone] Reason for Visit * Reason Onset Date Comments Referral 11/04/2023 Encounter Details Date Type Department Care Team ([facility] st Contact Info) Description 11/04/[address] [facility] [address] [place], [place] [phone] Smita Marr NP [address] [place] [address] Referral Social History Tobacco Use Types Packs/Day [...] has been recommended being followed by a grants director for her second . Pt has been in touch with provider at [facility] on [address] [place] [address]. Forwarding to provider for review. * Telephone Encounter - Renee Shaikh - 11/13/2023 12:01 PM EDT TC from pt returning call . Please contact pt at [phone]. * Telephone Encounter - Chet Charles RN - 11/04/2023 3:28 PM EDT T/C to pt. For below message. Call direct goes on voice message , states the person you are callingcannot accept the call right now, sorry for inconvenience. Not able to LVM. * Telephone Encounter - Jamison Wong - 11/04/2023 12:38 PM EDT TC from pt requesting new referral: Address: [address] [place] [address] Facility Name: [facility] Cardiology Type of Specialist: Cardiology Provider : Dr. Josh Chavez documented in this encounter Plan of Treatment Not on file documented as of this encounter Visit Diagnoses Not on filedocumented in this encounter Additional Health Concerns Assessment Noted Time PHQ-9 Depression Total Score: 3 11/12/19 2:18 PM EDT documented as of this encounter Care Teams Refuse Collector Supervisor Relationship Specialty Start Date End Date Smita Marr NP [address] [place] [phone] PCP - General Family Medicine 05/13/23 documented as of this encounter
--- OUTSIDE RECORDS SUMMARY | 2025-07-11 07:58 | XMS_ITS | Clinical Summary ---
Author Organization [employer] Address [address] [place] [address] 7t [place] [address] Care Team Providers Care Trim Installer Name Role Phone Jerrysukhjinder Smita PEDRO Primary Care Provider [phone] Allergies Active Allergy Reactions Criticality Noted Date [...] the past 12 months, has t he [employer], gas, oil or water [employer] threatened to shut off services in your [...] Blood Count 8.2 4.8 - 10.8 X10*3/uL [facility] Red Blood Count 5.07 4.20 - 5.50 X10*6/uL [facility] Hemoglobin 13.1 12.0 - 16.0 g/dl [facility] Hematocrit 40.8 37.0 - 47.0 % [facility] Mean Corpuscular Volume 80.5 80.0 - 98.0 fL [facility] Mean Corpuscular Hemoglobin 25.8(L) 27.0 - 33.0 pg [facility] Mean Corpuscular HGB Conc 32.1 31.0 - 35.0 g/dl [facility] Red Cell Distribution Width 14.5 11.0 - 16.0 % [facility] Platelet Count 356 160 - 400 X10*3/uL [facility] Mean Platelet Volume 10.7 9.4 - 12.3 fL [facility] Neutrophils Percent Auto 83.1(H) 45 - 73 % [facility] Imm Gran Pct Auto 0.4 0.0 - 0.4 % [facility] Lymphocytes Percent Auto 10.9(L) 20 - 40 % [facility] Monocytes Percent Auto 5.2 2 - 11 % [facility] Eosinophils Percent Auto 0.2 0 - 4 % [facility] Basophils Percent Auto 0.2 0 - 2 % [facility] NRBC Pct Auto 0.0 0.0 - 0.2 /100WBC [facility] Neutrophils Absolute Auto 6.8 2.0 - 8.3 x10*3/uL [facility] Imm Gran Abs Auto 0.03 0.00 - 0.03 X10*3/uL [facility] Lymphocytes Absolute Auto 0.9(L) 1.2 - 4.9 X10*3/uL [facility] Monocytes Absolute Auto 0.4 0.1 - 1.2 X10*3/uL [facility] Eosinophils Absolute Auto 0.0 0.0 - 0.4 X10*3/uL [facility] Basophils Absolute Auto 0.0 0.0 - 0.2 X10*3/uL [facility] NRBC Abs Auto 0.000 0.0 - 0.012 X10*3/uL [facility] 06/14/2025 9:00 AM EST 06/14/2025 9:02 AM EST us Generic External Data Provider LAB BLOOD ORDERAB LES Final Result [facility] [address] [place] [address] [phone] * Hepatitis B, C Profile (05/23/2023 11:50 AM EDT) ~Hepatitis B Surface Antibody NONREACTIVE Nonreactive [facility] Comment:Nonreactive: < 8.00 mIU/mL Hepatitis B Core Antibody Nonreactive Nonreactive [facility] Hepatitis C Antibody Nonreactive Nonreactive [facility] Comment:Antibodies to HCV no t detected; does not exclude early acuteHCV infection. Hepatitis B Surface Ag Negative Negative [facility] 05/23/2023 11:5 0 AM EDT 05/23/2023 1:38 PM EDT Valery Howe [facility] LAB BLOOD ORDERABLES Final Res ult Performing Organization Address [facility] de Phone Number [facility] [address] [place] [phone] * HIV Ab/Ag ([facility]) (05/23/2023 11:50 AM EDT) Pathologist [facility] HIV AB/AG Nonreactive Nonreactive [facility] Comment:HIV-1 p24 Ag and/or HIV-1/HIV-2 Ab not detected.A test result that is nonreactive does not exclude thepossibility of exposure to or infection with HIV-1 and/orHIV-2. Nonreactive results in this assay for individualswith prior exposure to HIV-1 and/or HIV-2 may be due toantigen and antibody levels that are below the limit ofdetection of this assay.The [employer]ed [employer] HIV Ag/Ab Combo assay result andsupplemental assay results should be interpreted inconjunction with the patient's clinical presentation,history and other laboratory results. If the results areinconsistent with clinical evidence, additional testing issuggested to confirm the result. 05/23/2023 11:5 0 AM EDT 05/23/2023 1:38 PM EDT Valery Howe [facility] LAB BLOOD ORDERABLES Final Res ult Performing Organization Address [facility] Co de Phone Number [facility] [address] [place] [address] [phone] * Pap Smear (08/26/2022) Pap Negative for intraephithelial lesion or malignancy Negative for intraephithelial lesion or malignancy, Other us Historical Provider HEALTH MAINTENANCE Final Result from Last 3 Months or Most Recently Relevant to Health Maintenance Insurance [employer] C3 Care Teams Trim Installer Relationship Specialty Start Date End Date Smita Marr NP [address] [place] [phone] PCP - General Family Medicine 05/13/23
[2025-07-11 07:59] LABS: MANUAL DIFF FLAG NO
--- NOTE | 2025-07-11 08:00 | PC.NURSE ---
pt is alert and oriented, skin appropriate for ethnicity, respirations even and unlabored, pt is reporting since yesterday not feeling well, all over abd pain/v/d/chills chest tightens/ cough, bowel sounds in all 4 quadrants, abd soft but tender, pt reprots taking Tylenol at home areund 05
[2025-07-11 08:05] LABS: Hematocrit 38.3 % (37.0-47.0); Hemoglobin 12.4 g/dl (12.0-16.0); Imm Gran Abs Auto 0.08 X10*3/uL (0.00-0.03); Imm Gran Pct Auto 0.6 % (0.0-0.4); Lymphocytes Absolute Auto 0.8 X10*3/uL (1.2-4.9); Mean Corpuscular HGB Conc 32.4 g/dl (31.0-35.0); Mean Corpuscular Hemoglobin 26.2 pg (27.0-33.0); Mean Corpuscular Volume 80.8 fL (80.0-98.0); NRBC Abs Auto 0.000 X10*3/uL (0.0-0.012); NRBC Pct Auto 0.0 /100WBC (0.0-0.2); Platelet Count 333 X10*3/uL (160-400); Red Blood Count 4.74 X10*6/uL (4.20-5.50); White Blood Count 13.8 X10*3/uL (4.8-10.8)
[2025-07-11 08:13] LABS: Alanine Aminotransferase 11 U/L (0-31); Albumin Level 4.7 g/dL (3.5-5.0); Alkaline Phosphatase 84 U/L (39-117); Anion Gap 12 (12-20); Aspartate Amino Transferase 17 U/L (5-31); Blood Urea Nitrogen 9 mg/dL (9-16); Calcium 8.9 mg/dL (8.4-10.2); Carbon Dioxide 24 mmol/L (22-29); Chloride 105 mmol/L (96-108); Creatinine Clr Calc Pharmacy 108.0; Estimated Glomerular Filt Rate > 60; Potassium 3.2 mmol/L (3.3-5.1); Sodium 138 mmol/L (135-145); Total Protein 7.4 g/dL (6.5-8.0)
[2025-07-11 08:15] LABS: IDNOW Serial# 55D5AD1C; Strep A Nucleic Acid Negative (Negative)
[2025-07-11 08:19] LABS: Lipase 12 U/L (8-78); Magnesium 1.4 mg/dL (1.6-2.6)
[2025-07-11 08:21] VITALS: BP 113/70; PULSE 104; RESP 20; TEMP 38.2; O2SAT 100
[2025-07-11] MEDS: Magnesium Sulfate/H2O 2 GM/50 ML PIGGYBACK IV (08:43)
[2025-07-11 09:09] LABS: Resp Syncy Virus RNA Qual PCR NEGATIVE (Negative); SARS COV2 PCR INHOUSE NEGATIVE (Negative)
[2025-07-11] MEDS: Potassium Chloride/H20 10 MEQ/100 ML PIGGYBACK 100 MEQ IV ×4 (09:22→13:31)
[2025-07-11] MEDS: iohexoL 350 MG/ML 100 ML INFUS..BTL IV (10:07)
[2025-07-11 10:40] VITALS: BP 113/56; PULSE 110; RESP 20; TEMP 37.3; O2SAT 100
[2025-07-11 11:29] VITALS: BP 104/51; PULSE 111; RESP 18; TEMP 37; O2SAT 97
[2025-07-11 11:55] LABS: UPreg QC Valid YES
[2025-07-11 11:55] LABS: Appearance Urine Clear; Glucose Urine UA Negative (Negative); PH 7.5 (5.0-9.0); Specific Gravity - Urine >= 1.030 (1.005-1.025); UMIC TRIGGER UACC YES
[2025-07-11 11:58] LABS: UACC Culture Trigger YES
[2025-07-11 15:05] VITALS: BP 109/63; PULSE 103; RESP 18; TEMP 37; O2SAT 97
== END 2025-07-11 15:06 | disposition home or self-care (01) ==
PROVIDERS: Physician Assistant Medical; Emergency Provider Student in an Organized Health Care Education/Training Program
DX: K52.9 Noninfective gastroenteritis and colitis, unspecified (principal); B34.9 Viral infection, unspecified; E83.42 Hypomagnesemia; E87.6 Hypokalemia; Z03.818 Encounter for observation for suspected exposure to other biological agents ruled out; R11.0 Nausea; R10.9 Unspecified abdominal pain; R50.9 Fever, unspecified
CPT/HCPCS: 36415; 74177; 80053; 81001; 81025; 83605; 83690; 83735; 84443; 85025; 87040; 87086; 87637; 87651; 96365; 96366; 96367; 99285; J3475; J3480; Q9967

== ENCOUNTER → 2025-07-11 08:24 | Outpatient (BNV) | payer OTHER, SELFPAY | PROVIDERS: Emergency Provider Student in an Organized Health Care Education/Training Program; Visit Provider Radiology Diagnostic Radiology | DX: K44.9 Diaphragmatic hernia without obstruction or gangrene (principal) | CPT/HCPCS: 74177 ==